=== PATIENT | male | born 1930 | race Caucasian/White ===

== ENCOUNTER → 2018-11-25 | Outpatient (CLI) | payer MEDICARE | END | disposition home or self-care (01) | LOC: PREOP 05:35 | PROVIDERS: ATTEND Orthopaedic Surgery | DX: Z01.818 Encounter for other preprocedural examination (principal) ==

== ENCOUNTER 2018-11-30 07:18 | Day surgery (SDC) | payer MEDICARE ==
--- NOTE | 2018-11-21 11:28 | HISTORY AND PHYSICAL ---
DATE OF SERVICE: 11/30/2018 DATE OF ADMISSION: 11/30/2018 Outpatient surgery on 11/30/2018 for right shoulder surgery. HISTORY OF PRESENT ILLNESS: The patient is an 88-year-old right hand dominant gentleman who has been treated for an acromioclavicular ganglion cyst on his right shoulder with aspirations with immediate recurrence. He reports pain in the area. Due to functional impairment, failure to improve with conservative measures, the patient elected to proceed with surgical intervention. REVIEW OF SYSTEMS: No chest pain or shortness of breath. No dysuria. PAST MEDICAL HISTORY: Hypertension and arthritis. PAST SURGICAL HISTORY: Left hip internal fixation. FAMILY HISTORY: Noncontributory. PRIMARY CARE PROVIDER: [facility]. MEDICATIONS: Lisinopril, tramadol, aspirin. ALLERGIES: SIMVASTATIN. SOCIAL HISTORY: The patient is a former smoker, drinks alcohol socially. PHYSICAL EXAMINATION: GENERAL: The patient is well developed, well-nourished, in no acute distress. HEENT: Normocephalic, atraumatic. Pupils are equal, round, reactive to light. Oropharynx is clear. NECK: Supple. No lymphadenopathy. LUNGS: Clear to auscultation bilaterally. HEART: Regular rate and rhythm. ABDOMEN: Soft, nontender, nondistended. EXTREMITIES: Right shoulder demonstrates a 3 x 3 cm cystic mass on the dorsal aspect of the acromioclavicular joint. This is tender to palpation. It is mobile and nonpulsatile. There is no erythema or warmth. He has no pain with full shoulder range of motion with the exception of pain with cross body adduction. IMPRESSION: Right acromioclavicular ganglion cyst. PLAN: Right shoulder open distal clavicle excision and cyst excision. The risks, benefits, options, ramifications and recovery were discussed at length with the patient. He understands and wished to proceed. Job ID: [id number] DocumentID: [id number] Dictated Date: 11/21/2018 09:38:36 Director Of Manufacturing Operations Date: 11/21/2018 11:27:56 Dictated By: CHELO CRUZ MD
[2018-11-30] VITALS (7 sets, daily range): BP systolic 161–192; BP diastolic 81–96
[~2018-11-30] VITALS: Ht 179.1 cm; Wt 67.4 kg
--- NOTE | 2018-11-30 07:33 | Progress Note-Pre Operative ---
Pre-Operative Progress Note H&P Reviewed The H&P was reviewed, patient examined and no changes noted. Date Seen by Provider: Nov 30, 2018 Time Seen by Provider: 07:33 Date H&P Reviewed: Nov 30, 2018 Time H&P Reviewed: 07:33 Pre-Operative Diagnosis: right acromio clavicular OA with cyst CHELO CRUZ MD Nov 30, 2018 07:33
--- NOTE | 2018-11-30 07:35 | Progress Note-Post Operative ---
Post-Operative Progess Note Surgeon (s)/Fundraising Specialist (s) Surgeon CHELO CRUZ MD Fundraising Specialist: Tyler Wiggins Pre-Operative Diagnosis right acromio clavicular OA with cyst Post-Operative Diagnosis right acromioclavicular primary osteoarthritis with cyst Procedure & Operative Findings Date of Procedure 11/30/18 Procedure Performed/Findings Right distal clavicle excision and cyst excision Anesthesia Type GETA Estimated Blood Loss Estimated blood loss (mL): 50 ml Specimens/Packing Specimens Removed ganglion cyst Packing: none CHELO CRUZ MD Nov 30, 2018 07:35
[2018-11-30] MEDS ORDERED: LACTATED RINGERS 1,000 ML IV PRN (08:01)
[2018-11-30] MEDS ORDERED: ceFAZolin INJECTION 1,000 MG in WATER (STERILE) FOR INJECTION 10 ML IV ONE (08:15)
[2018-11-30] MEDS ORDERED: WATER (STERILE) FOR INJECTION 10 ML ONE (08:16)
[2018-11-30] MEDS ORDERED: ceFAZolin INJECTION 1,000 MG ONE (08:16)
[2018-11-30] MEDS ORDERED: ATOR10TA66 PO (08:33)
[2018-11-30] MEDS ORDERED: CHOL20002 PO (08:33)
[2018-11-30] MEDS ORDERED: FINA5TAB6 PO (08:33)
[2018-11-30] MEDS ORDERED: ASPI-586 PO (08:33)
[2018-11-30] MEDS ORDERED: LISI40TA PO (08:33)
[2018-11-30] MEDS ORDERED: FAMO20TA5 PO (08:33)
[2018-11-30] MEDS ORDERED: TRAZ-190 PO (08:33)
[2018-11-30] MEDS ORDERED: LISI1TAB10 PO (08:33)
[2018-11-30] MEDS ORDERED: TRAM50TA2 PO (08:33)
[2018-11-30] MEDS ORDERED: TAMS0.4C98 PO (08:37)
[2018-11-30] MEDS ORDERED: SERT100T8 PO (08:37)
[2018-11-30] MEDS ORDERED: MIDAZOLAM 2 MG/2 ML (VERSED) VIAL ONE (09:18)
[2018-11-30] MEDS ORDERED: fentaNYL INJECTION 100 MCG/2 ML AMP ONE (09:18)
[2018-11-30] MEDS ORDERED: DEXAMETHASONE 10 MG/ML (DECADRON) 1 ML VIAL ONE (09:19)
[2018-11-30] MEDS ORDERED: ONDANSETRON 4 MG/2 ML (SDV) Z0FRAN ONE (09:19)
[2018-11-30] MEDS ORDERED: LIDOCAINE PF 2% 5 ML (XYLOCAINE) VIAL ONE (09:19)
[2018-11-30] MEDS ORDERED: SEVOFLURANE (ULTANE) 15 ML INHAL SOLN ONE ×5 (09:19→10:21)
[2018-11-30] MEDS ORDERED: ROCURONIUM 10 MG/ML 5 ML SYRINGE IV ONE (09:19)
[2018-11-30] MEDS ORDERED: proPOfol 200 MG/20 ML (DIPRIVAN) VIAL IV ONE (09:19)
[2018-11-30] MEDS ORDERED: BUPIVACAINE 0.5% 30 ML (SENSORCAINE) VIAL ONE (09:27)
[2018-11-30] MEDS ORDERED: NEOSTIGMINE 1 MG/ML 5 ML SYRINGE ONE (09:44)
[2018-11-30] MEDS ORDERED: GLYCOPYRROLATE 0.2 MG/ML (ROBINUL) 2 ML VIAL ONE (09:44)
[2018-11-30] MEDS ORDERED: morphine INJ 10 MG/ML 1ML (SYR OR VIAL) IVP ONE (10:45)
[2018-11-30] MEDS: oxyCODONE/APAP 5/325MG (PERCOCET 5) TABLET PO PRN ×2 (11:42→13:00)
--- NOTE | 2018-11-30 11:45 | NUR ---
DR. CRUZ ON FLOOR CHECKING ON PATIENT. THIS RN ASKED IF PATIENT NEEDS PHYSICAL THERAPY. DR. CRUZ STATED PATIENT DOESN'T NEED PT AND MAY HAVE SLING OFF WHEN USING WALKER.
[2018-11-30] MEDS ORDERED: OXYC-471 PO (11:59)
--- NOTE | 2018-11-30 12:22 | NUR ---
THIS RN PHONED DR. CRUZ TO REPORT THAT PATIENT HAD RECEIVED PERCOCET AT 1142 AND WAS 8/10 THEN 5/10 AND NOW STATES HE IS TEARING AND ON THE VERGE OF SCREAMING DUE TO PAIN. GAVE TELEPHONE ORDER FOR 3MG MORPHINE ONCE.
[2018-11-30] MEDS ORDERED: morphine INJ 4 MG/ML 1 ML (VIAL/SYRINGE) IVP PRN ×2 (12:30→13:00)
--- NOTE | 2018-11-30 12:52 | NUR ---
THIS RN PHONED KENNETH HORTA APRN AND INFORMED OF FIRST DOSE OF PERCOCET AND MORPHINE ORDER FROM DR. CRUZ AND INFORMED PATIENT IN STILL IN PAIN, TEARING UP AND INFORMS IS ABOUT TO START SCREAMING. KENNETH HORTA APRN GAVE TELEPHONE ORDER FOR 3MG MORPHINE AND TO GIVE ANOTHER 5/325 PERCOCET AT THIS TIME.
[2018-11-30] MEDS ORDERED: morphine INJ 10 MG/ML 1ML (SYR OR VIAL) ONE (12:56)
--- NOTE | 2018-11-30 13:17 | Anesthesia-General Post-Op ---
General Patient Condition Mental Status/LOC: Same as Preop Cardiovascular: Satisfactory Nausea/Vomiting: Absent Respiratory: Satisfactory Pain: Controlled Complications: Absent Post Op Complications Complications None Follow Up Care/Instructions Patient Instructions None needed. Anesthesia/Patient Condition Patient Condition Patient is doing well, no complaints, stable vital signs, no apparent adverse anesthesia problems. No complications reported per nursing. KENNETH ELDER CRNA Nov 30, 2018 13:17
--- NOTE | 2018-11-30 14:52 | OPERATIVE REPORT ---
DATE OF SERVICE: 11/30/2018 PREOPERATIVE DIAGNOSES: 1. Right acromioclavicular primary osteoarthritis. 2. Right acromioclavicular ganglion cyst. POSTOPERATIVE DIAGNOSES: 1. Right acromioclavicular primary osteoarthritis. 2. Right acromioclavicular ganglion cyst. PROCEDURES: 1. Right open distal clavicle excision. 2. Right acromioclavicular ganglion cyst excision. SURGEON: Hermann Cruz MD. PARQUETRY FLOOR LAYER: PATIENCE Campbell, who assisted throughout the procedure and closed the incision. ANESTHESIA: General endotracheal by Sandra Reyes CRNA. ESTIMATED BLOOD LOSS: 50 mL. DRAINS: None. COMPLICATIONS: None. SPECIMENT: The ganglion cyst was sent for pathologic examination. The patient transferred to recovery room awake and stable condition. POSTOPERATIVE PLAN: Protected weightbearing for 4 weeks on the right upper extremity. STATEMENT OF MEDICAL NECESSITY: The patient is an 88-year-old right hand dominant gentleman with complaints of a mass, which was fluid filled at his acromioclavicular joint. This has undergone two aspirations in the past, but had recurrence. The patient was counseled regarding treatment options and elected to proceed with excision with distal clavicle excision, understanding that there could be recurrence. DESCRIPTION OF PROCEDURE: After risks and benefits of procedure were discussed and questions were answered and informed consent was signed and placed on chart, the operative site was confirmed in the preoperative holding area initialed by the surgeon. The patient was then transferred to the operating room after adequate levels of general endotracheal anesthetic were obtained, a timeout was called confirming the operative site. The right upper extremity was prepped and draped in the usual sterile fashion. An incision was made on the medial aspect of the cyst. The underlying soft tissues were carefully dissected. The cyst was exposed in its entirety and excised. This originated from the acromioclavicular joint. The deltotrapezial fascia was incised longitudinally, exposing the distal centimeter of the distal clavicle, which was then excised without difficulty. The edges of this were then rasped. The fascia was then closed over the defect with 0 Vicryl in bytogh-ve-[id number] interrupted fashion with a good closure obtained. The wound was copiously irrigated. A 2-0 Vicryl was used to reapproximate subcutaneous tissue and skin was closed with 4-0 nylon in vertical mattress interrupted fashion. Incision was infiltrated with plain Marcaine. A soft dressing and sling were applied and the patient was transferred to the recovery room awake and stable condition. Job ID: [id number] DocumentID: [id number] Dictated Date: 11/30/2018 10:25:12 Apparel Patternmaker Date: 11/30/2018 14:52:05 Dictated By: HERMANN CRUZ MD
== END 2018-11-30 14:35 | disposition home or self-care (01) ==
LOC: SDC 07:18
PROVIDERS: ATTEND Orthopaedic Surgery
DX: M19.011 Primary osteoarthritis, right shoulder (principal); M67.411 Ganglion, right shoulder; Z11.2 Encounter for screening for other bacterial diseases; I10 Essential (primary) hypertension; E78.5 Hyperlipidemia, unspecified; Z79.899 Other long term (current) drug therapy; Z87.891 Personal history of nicotine dependence
CPT/HCPCS: 87081

== ENCOUNTER 2019-02-03 09:12 | Inpatient (IN) | payer MEDICARE ==
[~2019-02-03] VITALS: Ht 177.8 cm; Wt 65.0 kg
[~2019-02-03 09:12] MED LIST: ASPI-586 PO; ATOR10TA66 PO; CHOL20002 PO; FAMO20TA5 PO; FINA5TAB6 PO; LISI1TAB10 PO; LISI40TA PO; OXYC-471 PO; SERT100T8 PO; TAMS0.4C98 PO; TRAM50TA2 PO; TRAZ-190 PO
[2019-02-03 09:34] LABS: HEMATOCRIT 40 % (40-54); HEMOGLOBIN 13.8 G/DL (13.3-17.7); MEAN CORPUSCULAR HEMOGLOBIN 30 PG (25-34); MEAN CORPUSCULAR HGB CONC 34 G/DL (32-36); MEAN CORPUSCULAR VOLUME 88 FL (80-99); PLATELET COUNT 208 10^3/uL (130-400); RED CELL DISTRIBUTION WIDTH 13.8 % (10.0-14.5); WHITE BLOOD COUNT 6.8 10^3/uL (4.3-11.0)
[2019-02-03 09:35] LABS: BASOPHILS % (AUTO) 0 % (0-10); EOSINOPHILS % (AUTO) 0 % (0-10); LYMPHOCYTES # (AUTO) 1.1 X 10^3 (1.0-4.0); LYMPHOCYTES % (AUTO) 16 % (12-44); MEAN PLATELET VOLUME 9.7 FL (7.4-10.4); MONOCYTES # (AUTO) 0.6 X 10^3 (0.0-1.0); MONOCYTES % (AUTO) 9 % (0-12); NEUTROPHILS # (AUTO) 5.1 X 10^3 (1.8-7.8); NEUTROPHILS % (AUTO) 75 % (42-75)
--- NOTE | 2019-02-03 09:51 | Diagnostic Imaging Report ---
Indication: Irregular heartbeat. Time of exam 9:28 AM No prior studies are available for comparison. The heart size is normal. There is elevation right hemidiaphragm. There is subsegmental atelectasis in the right base. Otherwise the lungs are clear. No effusion or pneumothorax is seen. Impression: Right basilar subsegmental atelectasis. Dictated by: Dictated on workstation # [id number]
[2019-02-03 09:59] LABS: BUN/CREATININE RATIO 15; CALCIUM 9.5 MG/DL (8.5-10.1); CARBON DIOXIDE 29 MMOL/L (21-32); CHLORIDE 84 MMOL/L (98-107); GFR ESTIMATED > 60; GLUCOSE 137 MG/DL (70-105); POTASSIUM 3.5 MMOL/L (3.6-5.0); SODIUM 128 MMOL/L (135-145)
--- NOTE | 2019-02-03 10:55 | ED Chest Pain ---
General Stated Complaint: IRREGULAR HR Source: patient Exam Limitations: no limitations History of Present Illness Date Seen by Provider: February 03, 2019 Time Seen by Provider: 10:45 Initial Comments Patient is an 88[facility]-old [facility] who presents with shortness of breath, palpitations which be intermittent for the past 3 days. Dyspnea with rest and with exertion. He is not hypoxic or tachycardic. Initial EKG shows A. fib rate controlled without acute ST-T wave changes. Patient denies chest pain or history of coronary disease. Denies history of heart failure, valvular heart disease or arrhythmia. No fevers chills, nausea vomiting sweats. Patient reports some urinary frequency and dysuria. Allergies and Home Medications Allergies Coded Allergies: simvastatin (Verified Allergy, Unknown, 11/25/18) Home Medications Aspirin 81 Mg Tablet.dr, 81 MG PO DAILY, (Reported) Atorvastatin Calcium 10 Mg Tablet, 5 MG PO HS, (Reported) Cholecalciferol (Vitamin D3) 2,000 Unit Capsule, 3,000 UNIT PO DAILY, (Reported) Famotidine 20 Mg Tablet, 20 MG PO DAILY, (Reported) Finasteride 5 Mg Tablet, 5 MG PO DAILY, (Reported) Lisinopril 40 Mg Tablet, 40 MG PO DAILY, (Reported) Oxycodone HCl/Acetaminophen 1 Each Tablet, 1 EACH PO Q4H PRN for PAIN-MODERATE Prescribed by: WILDER MARKS on 11/30/18 1159 Sertraline HCl 100 Mg Tablet, 50 MG PO DAILY, (Reported) Tamsulosin HCl 0.4 Mg Cap, 0.4 MG PO DAILY, (Reported) Tramadol HCl 50 Mg Tablet, 50 MG PO Q6H, (Reported) Trazodone HCl 100 Mg Tablet, 100 MG PO HS, (Reported) Past Ghbling-Snvvhl-Tqruro Hx Patient Social History Type Used: Cigarettes Former Smoker, Quit: Nov 30, 1977 Recent Hopitalizations: No Immunizations Up To Date Date of Influenza Vaccine: Aug 02, 2018 Seasonal Allergies Seasonal Allergies: No Past Medical History Surgeries: Yes (LEFT HIP) Respiratory: No High Cholesterol, Hypertension Neurological: No Gastrointestinal: No Endocrine: No Hearing Impairment: Hard of Hearing, Bilateral Hearing Aide Cancer: No Psychosocial: No Integumentary: No Physical Exam Vital Signs Capillary Refill : Height, Weight, BMI Height: 5'10.50" Weight: 148lbs. 8.0oz. [id number]; 21.0 BMI Method: Progress/Results/Core Measures Results/Orders Lab Results Laboratory Tests Test 02/03/19 09:28 02/03/19 10:45 Range/Units White Blood Count 6.8 4.3-11.0 10^3/uL Red Blood Count 4.55 4.35-5.85 10^6/uL Hemoglobin 13.8 13.3-17.7 G/DL Hematocrit 40 40-54 % Mean Corpuscular Volume 88 80-99 FL Mean Corpuscular Hemoglobin 30 25-34 PG Mean Corpuscular Hemoglobin Concent 34 32-36 G/DL Red Cell Distribution Width 13.8 10.0-14.5 % Platelet Count 208 130-400 10^3/uL Mean Platelet Volume 9.7 7.4-10.4 FL Neutrophils (%) (Auto) 75 42-75 % Lymphocytes (%) (Auto) 16 12-44 % Monocytes (%) (Auto) 9 0-12 % Eosinophils (%) (Auto) 0 0-10 % Basophils (%) (Auto) 0 0-10 % Neutrophils # (Auto) 5.1 1.8-7.8 X 10^3 Lymphocytes # (Auto) 1.1 1.0-4.0 X 10^3 Monocytes # (Auto) 0.6 0.0-1.0 X 10^3 Eosinophils # (Auto) 0.0 0.0-0.3 10^3/uL Basophils # (Auto) 0.0 0.0-0.1 10^3/uL Sodium Level 128 L 135-145 MMOL/L Potassium Level 3.5 L 3.6-5.0 MMOL/L Chloride Level 84 L 98-107 MMOL/L Carbon Dioxide Level 29 21-32 MMOL/L Anion Gap 15 H 5-14 MMOL/L Blood Urea Nitrogen 16 7-18 MG/DL Creatinine 1.10 0.60-1.30 MG/DL Estimat Glomerular Filtration Rate > 60 BUN/Creatinine Ratio 15 Glucose Level 137 H 70-105 MG/DL Calcium Level 9.5 8.5-10.1 MG/DL Troponin T 39 H <=15 NG/L Pro-B-Type Natriuretic Peptide 1251.0 H <75.0 PG/ML My Orders Orders - VIMAL KULKARNI DO Cbc With Automated Diff (02/03/19 09:23) Ekg Tracing (02/03/19 09:23) Troponin T (02/03/19 09:23) Basic Metabolic Panel (02/03/19 09:23) Thyroid Stimulating Hormone (02/03/19 09:23) Chest 1 View Ap/Pa Only (02/03/19 09:23) Probnp Fs (02/03/19 09:23) Furosemide Injection (Lasix Injection) (02/03/19 11:00) Ua Culture If Indicated (02/03/19 10:49) Departure Departure-Patient Inst. Referrals: NO,LOCAL PHYSICIAN (PCP/Family) Primary Care Physician VIMAL KULKARNI DO February 03, 2019 10:55
[2019-02-03 10:58] LABS: CLARITY,URINE CLEAR; COLOR,URINE YELLOW; GLUCOSE, URINE (UA) NEGATIVE (NEGATIVE); KETONES,URINE NEGATIVE (NEGATIVE); PH,URINE 7.5 (5-9); PROTEIN,URINE 1+ (NEGATIVE)
[2019-02-03 10:59] LABS: BILIRUBIN,URINE NEGATIVE (NEGATIVE); LEUKOCYTE ESTERASE ,URINE NEGATIVE (NEGATIVE); NITRITE,URINE NEGATIVE (NEGATIVE); SQUAMOUS EPITHELIAL CELL,UR 0-2 /HPF; UROBILINOGEN,URINE 0.2 MG/DL (NORMAL)
[2019-02-03] MEDS ORDERED: FUROSEMIDE 40 MG/4 ML INJ (LASIX) IVP ONE (11:00)
[2019-02-03] MEDS ORDERED: fentaNYL INJECTION 100 MCG/2 ML AMP IVP ONE (11:30)
[2019-02-03] MEDS ORDERED: ONDANSETRON 4 MG/2 ML (SDV) Z0FRAN IVP ONE (11:30)
--- NOTE | 2019-02-03 14:25 | NUR ---
ROSE AUSTIN admitted to room 403-1, with an admitting diagnosis of [place] A-FIB, on 02/03/19 from [facility] via [facility], accompanied by EMS.ROSE AUSTIN introduced to surroundings, call light, bed controls, phone, TV, temperature control, lights, meal times, smoking policy, visitor policy, side rail policy, bathrooms and showers. Patient Rights given to patient in the handbook. ROSE AUSTIN verbalizes understanding that [facility] is not responsible for the loss or damage to any personal effects or valuables that are kept in the patients posession during their hospitalization. ROSE AUSTIN verbalizes understanding of Interdisciplinary Patient Education. Patient and/or family were informed about the Rapid Response Team and its purpose.
[2019-02-03 14:32] VITALS: BP 180/84
[2019-02-03 14:50] VITALS: BP 178/80
[2019-02-03] MEDS ORDERED: METH5TAB5 PO (14:51)
[2019-02-03] MEDS ORDERED: UBID1CAP53 PO (14:51)
[2019-02-03] MEDS ORDERED: OXYC-471 PO (14:51)
--- NOTE | 2019-02-03 14:52 | NUR ---
PATIENT BROUGHT IN A BAG OF MEDICATION BOTTLES. [facility] 01-16-19 METHIMAZOLE 5MG 1/2 DAILY #45 01-13-19 TRAMADOL 50MG QID PRN PAIN #120 12-26-18 FAMOTIDINE 20MG DAILY #90 11-25-18 TAMSULOSIN 0.4MG DAILY #90 11-25-18 ATORVASTATIN 10MG 1/2 HS #45 11-25-18 FINASTERIDE 5MG DAILY #90 11-25-18 SERTRALINE 100MG 1/2 DAILY #45 11-24-18 LISINOPRIL 40MG DAILY #90 11-24-18 ASPIRIN 81MG DAILY #120 10-12-18 TRAZODONE 100MG HS #90 09-24-18 LISINOPRIL HCTZ 20-25MG 1 & 1/2 TAB DAILY #135 (NOT CURRENTLY TAKING) BOTTLE FROM JON GONZALEZ: 11-30-18 OXYCODONE 5-325MG 1 Q4H PRN #30 OTC MEDS: CO Q 10 100MG VITAMIN D3 2,000 UNITS ALSO HAS GLYCERIN SUPPOSITORIES NEEDED
[2019-02-03] MEDS ORDERED: GLYC-12 RC (15:07)
[2019-02-03 15:15] VITALS: BP 158/72
[2019-02-03] MEDS ORDERED: CATHETER FLUSH 10 ML SYR IV PRN (15:15)
[2019-02-03] MEDS: oxyCODONE/APAP 5/325MG (PERCOCET 5) TABLET PO PRN ×2 (16:48→23:22)
[2019-02-03] MEDS: FUROSEMIDE 40 MG/4 ML INJ (LASIX) IV SCH (16:49)
--- NOTE | 2019-02-03 17:52 | History & Physical-Hospitalist ---
History of Present Illness HPI/Chief Complaint The patient's a pleasant 88-year-old white male who noted for about the past week he was having increased shortness of breath initially just with exertion. The past several days he's noticed some intermittent palpitations without lightheadedness or chest discomfort. He's had some orthopnea without PND. He went out to breakfast this morning and just the effort of walking back into the house from his car caused significant shortness of breath and fatigue. Because of the shortness of breath he alerted EMS services and was brought to the [place] emergency room. There he was noted to be in atrial fibrillation with no reported past history of atrial fibrillation. His rate was reportedly control I suspect that he was hypertensive as he has been hypertensive upon arrival here but did not see blood pressure from the emergency room sheet. [facility] and reports long-standing hypertension with no history of known coronary disease. He reports that he had been on lisinopril HCT but will switch to plain lisinopril. He is not sure why but he was noted to be hyponatremic with sodium level of 128 today which may be the reason. He doesn't recall being hyponatremic in the past that he has known of he was feeling a little bit confused with the shortness of breath but had not had any previous reported confusion. Date Seen 02/03/19 Time Seen by a Provider: 04:[address] MD PCP No,Local Physician Referring Physician Date of Admission February 03, 2019 at 12:23 Home Medications & Allergies Home Medications Reviewed patient Home Medication Reconciliation performed by pharmacy medication reconciliations rfid technician and/or nursing. Patients Allergies have been reviewed. Allergies Allergies Coded Allergies simvastatin (Verified Allergy, Unknown, Takes Atorvastatin at home, 02/03/19) Past Lshjgsq-Pqnkhc-Bgdwmh Hx Past Med/Social Hx: Reviewed and Corrections made Patient Social History Alcohol Use: Occasionally Uses Recreational Drug Use: No Smoking Status: Never a Smoker Former Smoker, Quit: Nov 30, 1977 2nd Hand Smoke Exposure: No Recent Foreign Travel: No Contact w/other who traveled: No Recent Hopitalizations: No Recent Infectious Disease Expo: No Immunizations Up To Date Date of Influenza Vaccine: Aug 02, 2018 Seasonal Allergies Seasonal Allergies: No Past Medical History Cardiac: High Cholesterol, Hypertension Hearing Impairment: Hard of Hearing, Bilateral Hearing Aide Review of Systems Constitutional: No chills, No diaphoresis, No dizziness, No fever, No malaise; weakness; No weight gain, No weight loss, No other Respiratory: see HPI; No cough; dyspnea on exertion; No hemoptysis; orthopnea; No phlegm; short of breath; No stridor, No wheezing, No other Cardiovascular: No chest pain, No edema, No Hx of Intervention; palpitations; No syncope, No vascular heart diseas, No other Physical Exam Physical Exam Vital Signs Vital Signs - First Documented 02/03/19 02/03/19 09:15 13:35 Temp 98.1 Pulse 69 Resp 24 B/P (MAP) 159/81 (107) Pulse Ox 94 O2 Delivery Room Air O2 Flow Rate 2.00 Capillary Refill : Less Than 3 Seconds Height, Weight, BMI Height: 5'10.00" Weight: 143lbs. 6.0oz. 65.805885xm; 21.0 BMI Method:Stated General Appearance: No Apparent Distress, Thin HEENT: PERRL/EOMI, Normal ENT Inspection, Pharynx Normal, Moist Mucous Membranes Neck: Full Range of Motion, Normal Inspection, Non Tender Respiratory: Chest Non Tender, No Accessory Muscle Use, No Respiratory Distress, Other (By basilar rales noted some mild expiratory wheezing) Cardiovascular: No Edema, No Gallop, No JVD, No Murmur, Irregularly Irregular Gastrointestinal: Normal Bowel Sounds, No Organomegaly, No Pulsatile Mass, Non Tender, Soft Extremity: Normal Capillary Refill, Normal Inspection, Normal Range of Motion, Non Tender, No Calf Tenderness, No Pedal Edema Neurologic/Psychiatric: Alert, Oriented x3, No Motor/Sensory Deficits, Normal Mood/Affect Results Results/Procedures Labs Laboratory Tests 02/03/19 09:28 Patient resulted labs reviewed. Assessment/Plan Admission Diagnosis A/P 1. Acute diastolic heart failure likely due to underlying hypertensive heart disease and acute or recent atrial fibrillation. Echocardiogram revealed an ejection fraction of 55-60 percent with visual findings suggesting significant diastolic dysfunction with mild left atrial chamber dilatation and mild concentric left ventricle hypertrophy. PA pressure was mildly elevated estimated at 35 mmHg. We'll continue furosemide and repeat basic metabolic panel in the morning. 2. Hyponatremia unclear etiology there is no evidence to suggest significant volume overload we will repeat basic metabolic panel in the morning. 3. History of hyperthyroidism on low-dose methimazole TSH was normal. The medications not available here mellitus have the patient resume on discharge. 4. Hypertension exacerbated by heart failure continue IV diuretics and have added carvedilol 6.25 mg twice a day. 5. Recent onset atrial fibrillation we will discuss anticoagulant therapy with the patient in more detail in the morning. Admission Status: Inpatient Order (span 2 midnights) Reason for Inpatient Admission: See admission diagnosis Clinical Quality Measures DVT/VTE Risk/Contraindication: Risk Factor Score Per Nursin RFS Level Per Nursing on Admit: 4+=Very High NATALIE LANE MD February 03, 2019 17:52
[2019-02-03 20:00] VITALS: BP 127/72
[2019-02-03] MEDS: TAMSULOSIN 0.4 MG (FLOMAX) CAP PO SCH (21:16)
[2019-02-03] MEDS: CARVEDILOL 6.25 MG (COREG) TAB PO SCH (21:16)
[2019-02-03] MEDS: ATORVASTATIN 10 MG (LIPITOR) TABLET PO SCH (21:17)
[2019-02-03] MEDS: traZODone 100 MG (DESYREL) TAB PO SCH (21:17)
[2019-02-04] VITALS (7 sets, daily range): BP systolic 92–128; BP diastolic 52–76
[2019-02-04 05:34] LABS: CALCIUM 10.1 MG/DL (8.5-10.1); CREATININE SERUM 1.82 MG/DL (0.60-1.30); POTASSIUM 3.4 MMOL/L (3.6-5.0)
[2019-02-04] MEDS: FUROSEMIDE 40 MG/4 ML INJ (LASIX) IV SCH (06:19)
[2019-02-04] MEDS: FAMOTIDINE 20 MG (PEPCID) TABLET PO SCH (08:26)
[2019-02-04] MEDS: ASPIRIN 81 MG CHEW (CHILDREN'S ASA) PO SCH (08:26)
[2019-02-04] MEDS: SERTRALINE 50 MG (ZOLOFT) TABLET PO SCH (08:26)
[2019-02-04] MEDS: CARVEDILOL 6.25 MG (COREG) TAB PO SCH (08:26)
[2019-02-04] MEDS ORDERED: lisINopril 40 MG (PRINIVIL) TABLET PO SCH (09:00)
--- NOTE | 2019-02-04 10:20 | NUR ---
Pt BP 100/[address] Bills notified. No new orders at this time.
--- NOTE | 2019-02-04 10:27 | Progress Note-Hospitalist ---
Subjective HPI/CC On Admission Date Seen by Provider: February 04, 2019 Time Seen by Provider: 09:30 The patient's a pleasant 88-year-old white male who noted for about the past week he was having increased shortness of breath initially just with exertion. The past several days he's noticed some intermittent palpitations without lighth eadedness or chest discomfort. He's had some orthopnea without PND. He went out to breakfast this morning and just the effort of walking back into the house from his car caused significant shortness of breath and fatigue. Because of the shortness of breath he alerted EMS services and was brought to the [place] emergency room. There he was noted to be in atrial fibrillation with no reported past history of atrial fibrillation. His rate was reportedly control I suspect that he was hypertensive as he has been hypertensive upon arrival here but did not see blood pressure from the emergency room sheet. [facility] and reports long-standing hypertension with no history of known coronary disease. He reports that he had been on lisinopril HCT but will switch to plain lisinopril. He is not sure why but he was noted to be hyponatremic with sodium level of 128 today which may be the reason. He doesn't recall being hyponatremic in the past that he has known of he was feeling a little bit confused with the shortness of breath but had not had any previous reported confusion. Subjective/Events-last exam Patient voices no complaints denies lightheadedness nausea and chest discomfort or shortness of breath. He's been to the bathroom and back and has had 2 cups of coffee. His blood pressure however is gone down significantly record at 90/60 this morning unfortunately he did receive all of his blood pressure medications including furosemide IV. We have put a hold on antihypertensive medication. Objective Exam Vital Signs Vital Signs Date Time Temp Pulse Resp B/P (MAP) Pulse Ox O2 Delivery O2 Flow Rate FiO2 02/04/19 08:20 98.0 59 12 92/52 (65) 95 Room Air 02/04/19 00:40 93.00 Capillary Refill : Less Than 3 Seconds General Appearance: No Apparent Distress, Thin HEENT: PERRL/EOMI, Normal ENT Inspection, Pharynx Normal, Moist Mucous Membranes Neck: Full Range of Motion, Normal Inspection, Non Tender Respiratory: Chest Non Tender, No Accessory Muscle Use, No Respiratory Distress, Other (Wheezing resolved few basilar rales noted no vesicular breath sounds noted.) Cardiovascular: No Edema, No Gallop, No JVD, No Murmur, Irregularly Irregular Gastrointestinal: Normal Bowel Sounds, No Organomegaly, No Pulsatile Mass, Non Tender, Soft Extremity: Normal Capillary Refill, Normal Inspection, Normal Range of Motion, Non Tender, No Calf Tenderness, No Pedal Edema Neurologic/Psychiatric: Alert, Oriented x3, No Motor/Sensory Deficits, Normal Mood/Affect Results/Procedures Lab Laboratory Tests 02/04/19 04:45 Patient resulted labs reviewed. Assessment/Plan Assessment and Plan Assess & Plan/Chief Complaint A/P 1. Acute diastolic heart failure likely due to underlying hypertensive heart disease and acute or recent atrial fibrillation. Echocardiogram revealed an ejection fraction of 55-60 percent with visual findings suggesting significant diastolic dysfunction with mild left atrial chamber dilatation and mild concentric left ventricle hypertrophy. PA pressure was mildly elevated est imated at 35 mmHg. to hypotension and increasing BUN/creatinine significantly to 1.6 will be holding lisinopril carvedilol and furosemide. Patient was warned about orthostatic hypotension nursing staff was warned he will be getting up with assistance only today and was encouraged to increase fluid intake by several glasses of water more than his norm. 2. Hyponatremia unclear etiology improved sodium level up to 131 at the expense of some dehydration. 3. History of hyperthyroidism on low-dose methimazole TSH was normal. The medications not available here mellitus have the patient resume on discharge. 4. Hypertension history currently hypotensive see above. 5. Recent onset atrial fibrillation we will discuss anticoagulant therapy with the patient in more detail in the morning continue to hold today as the patient is a fall risk due to hypotension. Repeat BMP in the morning. Admission Status: Inpatient Order (span 2 midnights) Clinical Quality Measures DVT/VTE Risk/Contraindication: Risk Factor Score Per Nursin RFS Level Per Nursing on Admit: 4+=Very High NATALIE LANE MD February 04, 2019 10:27
[2019-02-04] MEDS: traZODone 100 MG (DESYREL) TAB PO SCH (20:17)
[2019-02-04] MEDS: ATORVASTATIN 10 MG (LIPITOR) TABLET PO SCH (20:17)
[2019-02-04] MEDS: TAMSULOSIN 0.4 MG (FLOMAX) CAP PO SCH (20:17)
[2019-02-04] MEDS: oxyCODONE/APAP 5/325MG (PERCOCET 5) TABLET PO PRN (21:29)
[2019-02-05 03:50] VITALS: BP 91/60
[2019-02-05 08:00] VITALS: BP 92/50
[2019-02-05] MEDS: SERTRALINE 50 MG (ZOLOFT) TABLET PO SCH (08:13)
[2019-02-05] MEDS: FAMOTIDINE 20 MG (PEPCID) TABLET PO SCH (08:13)
[2019-02-05] MEDS: ASPIRIN 81 MG CHEW (CHILDREN'S ASA) PO SCH (08:13)
[2019-02-05 12:00] VITALS: BP 142/73
--- NOTE | 2019-02-05 13:45 | Discharge Summary-Hospitalist ---
Diagnosis/Chief Complaint Date of Admission February 03, 2019 at 12:23 Date of Discharge Admission Diagnosis A/P 1. Acute diastolic heart failure likely due to underlying hypertensive heart disease and acute or recent atrial fibrillation. Echocardiogram revealed an ejection fraction of 55-60 percent with visual findings suggesting significant diastolic dysfunction with mild left atrial chamber dilatation and mild concentric left ventricle hypertrophy. PA pressure was mildly elevated estimated at 35 mmHg. We'll continue furosemide and repeat basic metabolic pa joseph in the morning. 2. Hyponatremia unclear etiology there is no evidence to suggest significant volume overload we will repeat basic metabolic panel in the morning. 3. History of hyperthyroidism on low-dose methimazole TSH was normal. The medications not available here mellitus have the patient resume on discharge. 4. Hypertension exacerbated by heart failure continue IV diuretics and have added carvedilol 6.25 mg twice a day. 5. Recent onset atrial fibrillation we will discuss anticoagulant therapy with the patient in more detail in the morning. Discharge Summary Discharge Physical Exam Allergies: Coded Allergies: simvastatin (Verified Allergy, Unknown, Takes Atorvastatin at home, 02/03/19) Vitals & I&Os Vital Signs Date Time Temp Pulse Resp B/P (MAP) Pulse Ox O2 Delivery O2 Flow Rate FiO2 02/05/19 13:00 78 02/05/19 12:00 98.1 20 142/73 (96) 95 Room Air 02/04/19 20:00 93.00 General Appearance: No Apparent Distress, WD/WN Respiratory: Chest Non Tender, Lungs Clear, Normal Breath Sounds, No Accessory Muscle Use, No Respiratory Distress Cardiovascular: No Edema, No Gallop, No JVD, No Murmur, Normal Peripheral Pulses, Irregularly Irregular Gastrointestinal: Normal Bowel Sounds, No Organomegaly, No Pulsatile Mass, Non Tender, Soft Skin: Normal Color, Warm/Dry Neurologic/Psychiatric: Alert, Oriented x3, Normal Mood/Affect Hospital Course Was the Problem List Reviewed?: Yes The patient's a pleasant 88-year-old white male who noted for about the past week he was having increased shortness of breath initially just with exertion. The past several days he's noticed some intermittent palpitations without lightheadedness or chest discomfort. He's had some orthopnea without PND. He went out to breakfast this morning and just the effort of walking back into the house from his car caused significant shortness of breath and fatigue. Because of the shortness of breath he alerted EMS services and was brought to the [place] emergency room. There he was noted to be in atrial fibrillation with no reported past history of atrial fibrillation. His rate was reportedly control I suspect that he was hypertensive as he has been hypertensive upon arrival here but did not see blood pressure from the emergency room sheet. He has received all of his care from the [place] and reports long-standing hypertension with no history of known coronary disease. He reports that he had been on lisinopril HC T but will switch to plain lisinopril. He is not sure why but he was noted to be hyponatremic with sodium level of 128 today which may be the reason. He doesn't recall being hyponatremic in the past that he has known of he was feeling a little bit confused with the shortness of breath but had not had any previous reported confusion. Hospital course: The patient was admitted for treatment of atrial fibrillation likely new or recent onset and the concern for secondary congestive heart failure and considering borderline troponin elevation consideration for acute coronary syndrome. He had no chest discomfort and no ischemic EKG changes favoring a type II infarct from hypertension and atrial fibrillation. Echocardiography revealed preserved systolic function and evidence for underlying diastolic dysfunction mild LVH and mild left atrial chamber dilatation. PA pressure was only minimally elevated at 35 mmHg. The inferior vena cava was actually small collapsing completely on inspiration indicative of low right atrial pressure. He was given carvedilol and lisinopril was continued with 1 or 2 doses of IV Lasix. This dropped his systolic pressure in the 90s but he denied any problems lightheadedness ambulating without difficulty. On the day of this discharge while he was resting he had a supine pressure of 95/65 but when standing blood pressure was in the 140/70 range with a heart rate of 72 and irregularly irregular. His rate remained under control off of beta vadim therapy. He is advised to monitor home blood pressures and take Lasix only as needed for shortness of breath with follow-up with the [place] where he gets his healthcare in 1-2 weeks. Labs (last 24 hrs) Patient resulted labs reviewed. Discussion & Recommendations Discharge Planning: >30 minutes discharge planning Discharge Home Medications: Active Scripts Active Reported Glycerin 1 Each Supp.rect 1 Supp.rect RC DAILY PRN Methimazole 5 Mg Tablet 2.5 Mg PO HS TAKES 1/2 (5MG) TABLET Oxycodone-Acetaminophen 5-325 (Oxycodone HCl/Acetaminophen) 1 Each Tablet 1 Tab PO Q4H PRN Co Q-10 100 mg Softgel (Ubidecarenone/Vit E Acetate) 1 Each Capsule 100 Mg PO DAILY Sertraline HCl 100 Mg Tablet 50 Mg PO DAILY TAKES 1/2 (100MG) TABLET Flomax (Tamsulosin HCl) 0.4 Mg Cap 0.4 Mg PO HS Trazodone HCl 100 Mg Tablet 100 Mg PO HS Tramadol HCl 50 Mg Tablet 50 Mg PO QID PRN Lisinopril 40 Mg Tablet 40 Mg PO DAILY Finasteride 5 Mg Tablet 5 Mg PO HS Famotidine 20 Mg Tablet 20 Mg PO DAILY Vitamin D-3 (Cholecalciferol (Vitamin D3)) 2,000 Unit Capsule 2,000 Unit PO DAILY Atorvastatin Calcium 10 Mg Tablet 5 Mg PO HS TAKES 1/2 (10MG) TABLET Aspir 81 (Aspirin) 81 Mg Tablet.dr 81 Mg PO DAILY Instructions to patient/family Please see electronic discharge instructions given to patient. Clinical Quality Measures DVT/VTE Risk/Contraindication: Risk Factor Score Per Nursin RFS Level Per Nursing on Admit: 4+=Very High NATALIE LANE MD February 05, 2019 13:45
[2019-02-05 14:15] LABS: POTASSIUM 2.8 MMOL/L (3.6-5.0)
[2019-02-05 14:16] LABS: CALCIUM 9.9 MG/DL (8.5-10.1); CREATININE SERUM 1.6 MG/DL (0.60-1.30)
[2019-02-05 15:37] VITALS: BP 139/79
[2019-02-05 19:04] VITALS: BP 96/56
[2019-02-05] MEDS: traZODone 100 MG (DESYREL) TAB PO SCH (21:06)
[2019-02-05] MEDS: TAMSULOSIN 0.4 MG (FLOMAX) CAP PO SCH (21:06)
[2019-02-05] MEDS: ATORVASTATIN 10 MG (LIPITOR) TABLET PO SCH (21:06)
[2019-02-05] MEDS: oxyCODONE/APAP 5/325MG (PERCOCET 5) TABLET PO PRN (21:07)
[2019-02-06] VITALS (7 sets, daily range): BP systolic 87–150; BP diastolic 51–75
[2019-02-06 05:22] LABS: CALCIUM 9.3 MG/DL (8.5-10.1); CREATININE SERUM 1.32 MG/DL (0.60-1.30); POTASSIUM 2.8 MMOL/L (3.6-5.0)
[2019-02-06] MEDS: SERTRALINE 50 MG (ZOLOFT) TABLET PO SCH (08:26)
[2019-02-06] MEDS: ASPIRIN 81 MG CHEW (CHILDREN'S ASA) PO SCH (08:26)
[2019-02-06] MEDS: FAMOTIDINE 20 MG (PEPCID) TABLET PO SCH (08:26)
--- NOTE | 2019-02-06 09:27 | NUR ---
PRIOR TO A.M. MEDICATIONS PULSE WAS 57 AND B/P WAS 150/75
[2019-02-06] MEDS ORDERED: KCL 10 MEQ TAB (MICRO K) PO NR (10:00)
[2019-02-06] MEDS: MAGNESIUM 1 GM/100 ML IVPB 100 ML IV SCH (11:40)
--- NOTE | 2019-02-06 13:12 | Progress Note-Hospitalist ---
Subjective HPI/CC On Admission Date Seen by Provider: February 05, 2019 Time Seen by Provider: 13:30 The patient's a pleasant 88-year-old white male who noted for about the past week he was having increased shortness of breath initially just with exertion. The past several days he's noticed some intermittent palpitations without lighth eadedness or chest discomfort. He's had some orthopnea without PND. He went out to breakfast this morning and just the effort of walking back into the house from his car caused significant shortness of breath and fatigue. Because of the shortness of breath he alerted EMS services and was brought to the [place] emergency room. There he was noted to be in atrial fibrillation with no reported past history of atrial fibrillation. His rate was reportedly control I suspect that he was hypertensive as he has been hypertensive upon arrival here but did not see blood pressure from the emergency room sheet. He has received all of his care from the [place] and reports long-standing hypertension with no history of known coronary disease. He reports that he had been on lisinopril HCT but will switch to plain lisinopril. He is not sure why but he was noted to be hyponatremic with sodium level of 128 today which may be the reason. He doesn't recall being hyponatremic in the past that he has known of he was feeling a little bit confused with the shortness of breath but had not had any previous reported confusion. Subjective/Events-last exam Other than weakness patient voices no complaints. He denies chest pain or shortness of breath there's been no evidence for confusion and he said no palpitations. Objective Exam Vital Signs Vital Signs Date Time Temp Pulse Resp B/P (MAP) Pulse Ox O2 Delivery O2 Flow Rate FiO2 02/06/19 12:44 57 02/06/19 12:00 97.5 20 87/51 (63) 98 Room Air 02/05/19 15:37 2.00 Capillary Refill : Less Than 3 SecondsLess Than 3 Seconds General Appearance: No Apparent Distress, WD/WN HEENT: PERRL/EOMI, Normal ENT Inspection, Pharynx Normal, Moist Mucous Membranes Neck: Full Range of Motion, Normal Inspection, Non Tender Respiratory: Chest Non Tender, Lungs Clear, Normal Breath Sounds, No Accessory Muscle Use, No Respiratory Distress Cardiovascular: No Edema, No Gallop, No JVD, No Murmur, Normal Peripheral Pulses, Irregularly Irregular Gastrointestinal: Normal Bowel Sounds, No Organomegaly, No Pulsatile Mass, Non Tender, Soft Extremity: Normal Capillary Refill, Normal Inspection, Normal Range of Motion, Non Tender, No Calf Tenderness, No Pedal Edema Neurologic/Psychiatric: Alert, Oriented x3, Normal Mood/Affect Skin: Normal Color, Warm/Dry Results/Procedures Lab Laboratory Tests 02/05/19 13:37 02/06/19 04:22 Patient resulted labs reviewed. Assessment/Plan Assessment and Plan Assess & Plan/Chief Complaint A/P 1. Acute diastolic heart failure likely due to underlying hypertensive heart disease and acute or recent atrial fibrillation. Echocardiogram revealed an ejection fraction of 55-60 percent with visual findings suggesting significant diastolic dysfunction with mild left atrial chamber dilatation and mild concentric left ventricle hypertrophy. PA pressure was mildly elevated estimated at 35 mmHg. to hypotension and increasing BUN/creatinine significantly to 1.6 will be holding lisinopril carvedilol and furosemide. Patient was warned about orthostatic hypotension nursing staff was warned he will be getting up with assistance only today and was encouraged to increase fluid intake by several glasses of water more than his norm. 2. Hyponatremia is worse with sodium down to 125 despite being off GABRIEL inhibitor therapy. Vital signs of been stable otherwise. We will discontinue sertraline repeat in the morning and hold discharge. By mouth fluid intake has not been excessive.. 3. History of hyperthyroidism on low-dose methimazole TSH was normal. The medications not available here mellitus have the patient resume on discharge. 4. Hypertension history currently hypotensive see above. 5. Recent onset atrial fibrillation we will discuss anticoagulant therapy with the patient in more detail in the morning continue to hold today as the patient is a fall risk due to hypotension. Repeat BMP in the morning. Admission Status: Inpatient Order (span 2 midnights) Clinical Quality Measures DVT/VTE Risk/Contraindication: Risk Factor Score Per Nursin RFS Level Per Nursing on Admit: 4+=Very High NATALIE LANE MD February 06, 2019 13:12
--- NOTE | 2019-02-06 13:16 | Progress Note-Hospitalist ---
Subjective HPI/CC On Admission Date Seen by Provider: February 06, 2019 Time Seen by Provider: 10:00 The patient's a pleasant 88-year-old white male who noted for about the past week he was having increased shortness of breath initially just with exertion. The past several days he's noticed some intermittent palpitations without lighth eadedness or chest discomfort. He's had some orthopnea without PND. He went out to breakfast this morning and just the effort of walking back into the house from his car caused significant shortness of breath and fatigue. Because of the shortness of breath he alerted EMS services and was brought to the [place] emergency room. There he was noted to be in atrial fibrillation with no reported past history of atrial fibrillation. His rate was reportedly control I suspect that he was hypertensive as he has been hypertensive upon arrival here but did not see blood pressure from the emergency room sheet. He has received all of his care from the [place] and reports long-standing hypertension with no history of known coronary disease. He reports that he had been on lisinopril HCT but will switch to plain lisinopril. He is not sure why but he was noted to be hyponatremic with sodium level of 128 today which may be the reason. He doesn't recall being hyponatremic in the past that he has known of he was feeling a little bit confused with the shortness of breath but had not had any previous reported confusion. Subjective/Events-last exam Patient reports feeling about the same denies shortness of breath to some generalized fatigue. Staff report no confusion he denies chest pain palpitations or orthopnea or PND. Objective Exam Vital Signs Vital Signs Date Time Temp Pulse Resp B/P (MAP) Pulse Ox O2 Delivery O2 Flow Rate FiO2 02/06/19 12:44 57 02/06/19 12:00 97.5 20 87/51 (63) 98 Room Air 02/05/19 15:37 2.00 Capillary Refill : Less Than 3 SecondsLess Than 3 Seconds General Appearance: No Apparent Distress, WD/WN HEENT: PERRL/EOMI, Normal ENT Inspection, Pharynx Normal, Moist Mucous Membranes Neck: Full Range of Motion, Normal Inspection, Non Tender Respiratory: Chest Non Tender, Lungs Clear, Normal Breath Sounds, No Accessory Muscle Use, No Respiratory Distress Cardiovascular: No Edema, No Gallop, No JVD, No Murmur, Normal Peripheral Pulses, Irregularly Irregular Gastrointestinal: Normal Bowel Sounds, No Organomegaly, No Pulsatile Mass, Non Tender, Soft Extremity: Normal Capillary Refill, Normal Inspection, Normal Range of Motion, Non Tender, No Calf Tenderness, No Pedal Edema Neurologic/Psychiatric: Alert, Oriented x3, Normal Mood/Affect Skin: Normal Color, Warm/Dry Results/Procedures Lab Laboratory Tests 02/05/19 13:37 02/06/19 04:22 Patient resulted labs reviewed. Assessment/Plan Assessment and Plan Assess & Plan/Chief Complaint A/P 1. Acute diastolic heart failure likely due to underlying hypertensive heart disease and acute or recent atrial fibrillation. His rate remains controlled and there is no evidence for ongoing heart failure. Blood pressure is been reasonable despite holding all antihypertensive medications as well as furosemide.. 2. Hyponatremia slightly improved sodium level up from 125-128 raising the possibility of sertraline which is been discontinued. Unfortunately his potassium was down to 2.8 and subsequent magnesium level was low at 1.4. In the process of replacing via IV magnesium and by mouth potassium. As long as electrolyte levels are improving discussed likely discharge in the morning. 3. History of hyperthyroidism on low-dose methimazole TSH was normal. The medications not available here mellitus have the patient resume on discharge. 4. Hypertension continues to be under reasonable control despite no medication will continue to hold. 5. Recent onset atrial fibrillation we will discuss anticoagulant therapy with the patient in more detail in the morning continue to hold today as the patient is a fall risk due to hypotension. Repeat BMP in the morning. Admission Status: Inpatient Order (span 2 midnights) Clinical Quality Measures DVT/VTE Risk/Contraindication: Risk Factor Score Per Nursin RFS Level Per Nursing on Admit: 4+=Very High NATALIE LANE MD February 06, 2019 13:16
[2019-02-06] MEDS: KCL 10 MEQ TAB (MICRO K) PO SCH (17:22)
[2019-02-06] MEDS: TAMSULOSIN 0.4 MG (FLOMAX) CAP PO SCH (19:56)
[2019-02-06] MEDS: ATORVASTATIN 10 MG (LIPITOR) TABLET PO SCH (19:56)
[2019-02-06] MEDS: traZODone 100 MG (DESYREL) TAB PO SCH (19:57)
[2019-02-06] MEDS: oxyCODONE/APAP 5/325MG (PERCOCET 5) TABLET PO PRN (19:57)
[2019-02-07] MEDS: oxyCODONE/APAP 5/325MG (PERCOCET 5) TABLET PO PRN (01:33)
[2019-02-07 04:13] VITALS: BP 106/53
[2019-02-07] MEDS: KCL 10 MEQ TAB (MICRO K) PO SCH (06:14)
[2019-02-07 07:17] VITALS: BP 131/63
[2019-02-07] MEDS: FAMOTIDINE 20 MG (PEPCID) TABLET PO SCH (08:33)
[2019-02-07] MEDS: ASPIRIN 81 MG CHEW (CHILDREN'S ASA) PO SCH (08:33)
[2019-02-07 08:51] LABS: CALCIUM 9.3 MG/DL (8.5-10.1); CREATININE SERUM 1.48 MG/DL (0.60-1.30)
[2019-02-07] MEDS ORDERED: POTA10TA10 PO (09:20)
--- NOTE | 2019-02-07 10:44 | Discharge Summary-Hospitalist ---
Diagnosis/Chief Complaint Date of Admission February 03, 2019 at 12:23 Date of Discharge Discharge Date: February 07, 2019 Discharge Time: 10:36 Admission Diagnosis A/P 1. Acute diastolic heart failure likely due to underlying hypertensive heart disease and acute or recent atrial fibrillation. Echocardiogram revealed an ejection fraction of 55-60 percent with visual findings suggesting significant diastolic dysfunction with mild left atrial chamber dilatation and mild concentric left ventricle hypertrophy. PA pressure was mildly elevated estimated at 35 mmHg. We'll continue furosemide and repeat basic metabolic panel in the morning. 2. Hyponatremia unclear etiology there is no evidence to suggest significant volume overload we will repeat basic metabolic panel in the morning. 3. History of hyperthyroidism on low-dose methimazole TSH was normal. The medications not available here mellitus have the patient resume on discharge. 4. Hypertension exacerbated by heart failure continue IV diuretics and have added carvedilol 6.25 mg twice a day. 5. Recent onset atrial fibrillation we will discuss anticoagulant therapy with the patient in more detail in the morning. Discharge Summary Discharge Physical Exam Allergies: Coded Allergies: simvastatin (Verified Allergy, Unknown, Takes Atorvastatin at home, 02/03/19) Vitals & I&Os Vital Signs Date Time Temp Pulse Resp B/P (MAP) Pulse Ox O2 Delivery O2 Flow Rate FiO2 02/07/19 08:00 94 Room Air 2.00 02/07/19 07:17 97.8 72 18 131/63 (85) General Appearance: No Apparent Distress Respiratory: Chest Non Tender, Lungs Clear, Normal Breath Sounds, No Accessory Muscle Use, No Respiratory Distress Cardiovascular: No Edema, No Gallop, No Murmur, Irregularly Irregular Extremity: No Pedal Edema Neurologic/Psychiatric: Alert, Oriented x3 Hospital Course Was the Problem List Reviewed?: Yes Patient states that for several days prior to presenting to the [facility] emergency room he felt increasingly weak there was some component of dyspnea on exertion but no chest symptoms or cough. When he returned from breakfast on the day of this admission just the effort of walking into his house cause extreme sensation of fatigue without any dizziness or chest symptoms. When he presented the emergency room in [place] he was noted to be in atrial fibrillation and as I recall ventricular response was fast as I recall however no higher than the 130-140 beat per minute range he was given some Cartia some and a BNP level was elevated around 1200 and troponin level was mildly elevated as well. He was admitted for rate control and treatment of presumed heart failure. EKG revealed no acute ischemic changes. Subsequent echocardiogram revealed findings compatible hypertensive heart disease he had LVH with evidence for diastolic dysfunction and mild left atrial chamber dilatation with preserved ventricular function estimated ejection fraction of 55-60 percent with no segmental wall motion abnormalities being appreciated and the mildly elevated PA pressure estimated at 35 with no significant valvular pathology. He received 2 or 3 doses of IV Lasix and had a baseline creatinine of 1.1 which increased to 1.8 by a second hospital day Lasix was discontinued Cardizem was discontinued and his ventricular response remain controlled with low normal blood pressures. He also had hyponatremia on admission with a level of 128 it dropped to 125 without any worsening anemia in his baseline symptoms now. Furosemide was discontinued as well as sertraline. I suspect that he is having ongoing issue with sodium as he stated [facility] plain lisinopril. In going through his medication list sertraline was Thing else that may be contributing. He has no symptoms to suggest underlying malignancy with negative chest x-ray. He was ambulating without difficulty and no evidence for acute coronary syndrome. Multiple home medications were discontinued and he was discharged on no antihypertensive medication with stable vital signs and heart rate in the 60-80 bpm range in no acute distress. He is advised to follow-up with the [place] in 1-2 weeks. In addition his magnesium level and potassium levels were low with IV replacement. Potassium was 3 and he was discharged on 10 mg once a potassium daily and advised to have these levels checked again at the [place] in 1-2 weeks. Labs (last 24 hrs) Laboratory Tests 02/07/19 08:10: Sodium Level 127L, Potassium Level 3.0L, Chloride Level 89L, Carbon Dioxide Level 28, Anion Gap 10, Blood Urea Nitrogen 38H, Creatinine 1.48H, Estimat Glomerular Filtration Rate 45, BUN/Creatinine Ratio 26, Glucose Level 165H, Calcium Level 9.3 Patient resulted labs reviewed. Pending Labs Laboratory Tests 02/07/19 08:10: Sodium Level 127, Potassium Level 3.0, Chloride Level 89, Carbon Dioxide Level 28, Anion Gap 10, Blood Urea Nitrogen 38, Creatinine 1.48, Estimat Glomerular Filtration Rate 45, BUN/Creatinine Ratio 26, Glucose Level 165, Calcium Level 9.3 Discussion & Recommendations Discharge Planning: >30 minutes discharge planning Discharge Home Medications: Active Scripts Active Potassium Chloride 10 Meq Tablet.er 10 Meq PO DAILY 15 Days Reported Glycerin 1 Each Supp.rect 1 Supp.rect RC DAILY PRN Methimazole 5 Mg Tablet 2.5 Mg PO HS TAKES 1/2 (5MG) TABLET Co Q-10 100 mg Softgel (Ubidecarenone/Vit E Acetate) 1 Each Capsule 100 Mg PO DAILY Tramadol HCl 50 Mg Tablet 50 Mg PO QID PRN Finasteride 5 Mg Tablet 5 Mg PO HS Famotidine 20 Mg Tablet 20 Mg PO DAILY Vitamin D-3 (Cholecalciferol (Vitamin D3)) 2,000 Unit Capsule 2,000 Unit PO DAILY Aspir 81 (Aspirin) 81 Mg Tablet.dr 81 Mg PO DAILY Instructions to patient/family Please see electronic discharge instructions given to patient. Clinical Quality Measures DVT/VTE Risk/Contraindication: Risk Factor Score Per Nursin RFS Level Per Nursing on Admit: 4+=Very High NATALIE LANE MD February 07, 2019 10:44
[2019-02-07 11:10] VITALS: BP 131/63
[2019-02-07 11:17] VITALS: BP 126/66
== END 2019-02-07 12:20 | disposition home or self-care (01) | DRG 291 ==
LOC: EDUNIT# 09:12 → ER FS 09:14 → 4TH 12:23
PROVIDERS: ADMIT Internal Medicine; ATTEND Internal Medicine
DX: I11.0 Hypertensive heart disease with heart failure (principal); I50.31 Acute diastolic (congestive) heart failure; I48.91 Unspecified atrial fibrillation; E87.1 Hypo-osmolality and hyponatremia; E78.00 Pure hypercholesterolemia, unspecified; R35.0 Frequency of micturition; R30.0 Dysuria; Z66 Do not resuscitate; E05.90 Thyrotoxicosis, unspecified without thyrotoxic crisis or storm; H91.93 Unspecified hearing loss, bilateral; Z97.4 Presence of external hearing-aid; Z91.81 History of falling
CPT/HCPCS: 36415; 71045; 80048; 81000; 83735; 83880; 84443; 84484; 85025; 93306

== ENCOUNTER 2019-08-21 16:40 | Inpatient (IN) | payer MEDICARE ==
[2019-08-21] VITALS (7 sets, daily range): BP systolic 102–161; BP diastolic 59–97
[~2019-08-21] VITALS: Ht 177.8 cm; Wt 76.8 kg
[~2019-08-21 16:40] MED LIST changes: +GLYC-12 RC; -LISI1TAB10 PO; +LISI1TAB26 PO; +METH5TAB5 PO; +POTA10TA10 PO; -TAMS0.4C98 PO; +TMSL.4C PO; -TRAM50TA2 PO; +TRM50T PO; +UBID1CAP53 PO
--- NOTE | 2019-08-21 16:51 | ED General ---
General Stated Complaint: SOB Source of Information: Patient, EMS Exam Limitations: No Limitations History of Present Illness Date Seen by Provider: Aug 21, 2019 Time Seen by Provider: 16:35 Initial Comments The patient is a pleasant 88-year-old male presents for evaluation of generalized fatigue, nasal congestion, and shortness of breath over the last few days. He arrives via EMS. EMS reports that he was being visited by his home health nurse who felt like he was more weak and short of breath and usual. He is alert, calm, and appears to be in no distress. He is saturating well on room air. He denies fevers or chills, chest pain, back pain, significant abdominal discomfort, urinary complaints, rash, vision changes, focal weakness or numbness, headache, neck pain, palpitations or syncope. Timing/Duration: 1-2 Days Severity: Mild Associated Systoms: Shortness of Air Allergies and Home Medications Allergies Coded Allergies: simvastatin (Verified Allergy, Unknown, Takes Atorvastatin at home, ) Home Medications Aspirin 81 Mg Tablet.dr, 81 MG PO DAILY, (Reported) Cholecalciferol (Vitamin D3) 2,000 Unit Capsule, 2,000 UNIT PO DAILY, (Reported) Famotidine 20 Mg Tablet, 20 MG PO DAILY, (Reported) Finasteride 5 Mg Tablet, 5 MG PO HS, (Reported) Glycerin 1 Each Supp.rect, 1 SUPP.RECT RC DAILY PRN for CONSTIPATION, (Reported) Methimazole 5 Mg Tablet, 2.5 MG PO HS, (Reported) TAKES 1/2 (5MG) TABLET Potassium Chloride 10 Meq Tablet.er, 10 MEQ PO DAILY Prescribed by: NATALIE LANE on 02/07/19 0920 Tramadol HCl 50 Mg Tablet, 50 MG PO QID PRN for PAIN-MODERATE, (Reported) Ubidecarenone/Vit E Acetate 1 Each Capsule, 100 MG PO DAILY, (Reported) Patient Home Medication List Home Medication List Reviewed: Yes Review of Systems Review of Systems Constitutional: malaise, weakness EENTM: nose congestion Respiratory: short of breath Cardiovascular: no symptoms reported Gastrointestinal: no symptoms reported Genitourinary: no symptoms reported Musculoskeletal: no symptoms reported Skin: no symptoms reported Psychiatric/Neurological: No Symptoms Reported Hematologic/Lymphatic: No Symptoms Reported Immunological/Allergic: no symptoms reported All Other Systems Reviewed Negative Unless Noted: Yes Past Xmjlggx-Yvjnfj-Hcbxgw Hx Past Med/Social Hx: Reviewed Nursing Past Med/Soc Hx Patient Social History Former Smoker, Quit: Nov 30, 1977 2nd Hand Smoke Exposure: No Recent Foreign Travel: No Contact w/Someone Who Travel: No Recent Hopitalizations: No Immunizations Up To Date Date of Influenza Vaccine: Aug 02, 2018 Seasonal Allergies Seasonal Allergies: No Past Medical History Surgeries: Yes (LEFT HIP) Respiratory: No High Cholesterol, Hypertension Neurological: No Gastrointestinal: No Endocrine: No Hearing Impairment: Hard of Hearing, Bilateral Hearing Aide Cancer: No Psychosocial: No Integumentary: No Physical Exam Vital Signs Vital Signs - First Documented 08/21/19 16:40 Temp 37.6 Pulse 57 Resp 24 B/P (MAP) 139/60 (86) Pulse Ox 95 O2 Delivery Room Air Capillary Refill : Height, Weight, BMI Height: 5'10.00" Weight: 143lbs. 6.0oz. 65.284383zd; 21.0 BMI Method:Stated General Appearance: No Apparent Distress, WD/WN Eyes: Bilateral Eye Normal Inspection, Bilateral Eye PERRL, Bilateral Eye EOMI HEENT: PERRL/EOMI, Pharynx Normal, Moist Mucous Membranes Neck: Full Range of Motion, Normal Inspection, Supple Respiratory: Chest Non Tender, Lungs Clear, Normal Breath Sounds, No Accessory Muscle Use, No Respiratory Distress Cardiovascular: No Edema, No JVD, No Murmur, Bradycardia Gastrointestinal: Normal Bowel Sounds, Non Tender, Soft Back: Normal Inspection Extremity: Normal Capillary Refill, Normal Range of Motion, Non Tender, No Calf Tenderness Neurologic/Psychiatric: Alert, Oriented x3, No Motor/Sensory Deficits, Normal Mood/Affect Skin: Normal Color, Warm/Dry Progress/Results/Core Measures Suspected Sepsis SIRS Temperature: Pulse: Respiratory Rate: Laboratory Tests 08/21/19 16:40: White Blood Count 9.4 Blood Pressure / Mean: Laboratory Tests 08/21/19 16:40: Platelet Count 199 Results/Orders Lab Results Laboratory Tests Test 08/21/19 16:40 Range/Units White Blood Count 9.4 4.3-11.0 10^3/uL Red Blood Count 4.04 L 4.35-5.85 10^6/uL Hemoglobin 12.3 L 13.3-17.7 G/DL Hematocrit 38 L 40-54 % Mean Corpuscular Volume 93 80-99 FL Mean Corpuscular Hemoglobin 30 25-34 PG Mean Corpuscular Hemoglobin Concent 33 32-36 G/DL Red Cell Distribution Width 14.8 H 10.0-14.5 % Platelet Count 199 130-400 10^3/uL Mean Platelet Volume 9.9 7.4-10.4 FL Neutrophils (%) (Auto) 82 H 42-75 % Lymphocytes (%) (Auto) 7 L 12-44 % Monocytes (%) (Auto) 11 0-12 % Eosinophils (%) (Auto) 0 0-10 % Basophils (%) (Auto) 0 0-10 % Neutrophils # (Auto) 7.7 1.8-7.8 X 10^3 Lymphocytes # (Auto) 0.7 L 1.0-4.0 X 10^3 Monocytes # (Auto) 1.0 0.0-1.0 X 10^3 Eosinophils # (Auto) 0.0 0.0-0.3 10^3/uL Basophils # (Auto) 0.0 0.0-0.1 10^3/uL My Orders Orders - ROSE BANDA DO Cbc With Automated Diff (08/21/19 16:41) Comprehensive Metabolic Panel (08/21/19 16:41) Probnp Fs (08/21/19 16:41) Troponin I Fs (08/21/19 16:41) Continuous Ekg Monitoring (08/21/19 16:41) Ekg Tracing (08/21/19 16:41) Influenza A And B Antigens (08/21/19 16:41) Continuous Pulse Ox (08/21/19 16:41) Urinalysis (08/21/19 16:41) Manual Differential (08/21/19 16:40) Aspirin Chewable Tablet (Baby Aspirin Ch (08/21/19 17:15) Heparin (Bolus Per Protocol) (Heparin (B (08/21/19 17:15) Chest 1 View Ap/Pa Only (08/21/19 16:41) Vital Signs/I&O 08/21/19 16:40 Temp 37.6 Pulse 57 Resp 24 B/P (MAP) 139/60 (86) Pulse Ox 95 O2 Delivery Room Air Capillary Refill : Progress Note : Progress Note @1658 - EKG shows inferior wall STEMI. Dr. Rodriguez called and states to transfer the pt immediately to the roofing laborer at [facility]. He states to give a full- strength ASA and 5000U IV Heparin. ECG EKG : Comment EKG@1653 - atrial fibrillation with a slow ventricular response, rate of 56, inferior wall STEMI is present, cardiology notified Departure Communication (Admissions) Time/Spoke to Admitting Phy: 17:00 Dr. Rodriguez (cardiology) accepts the transfer to the roofing laborer at [facility] Impression Primary Impression: Acute PR, inferior wall Disposition: ADMITTED INPATIENT Condition: Critical Admissions Decision to Admit Reason: Admit from ER (Trauma) Decision to Admit/Date: Aug 21, 2019 Time/Decision to Admit Time: 17:00 Transfer Method of Transfer: EMS Departure-Patient Inst. Referrals: NO,LOCAL PHYSICIAN (PCP/Family) Primary Care Physician ROSE BANDA DO Aug 21, 2019 16:51 POS
[2019-08-21 17:00] LABS: BASOPHILS % (AUTO) 0 % (0-10); EOSINOPHILS % (AUTO) 0 % (0-10); HEMATOCRIT 38 % (40-54); HEMOGLOBIN 12.3 G/DL (13.3-17.7); LYMPHOCYTES # (AUTO) 0.7 X 10^3 (1.0-4.0); LYMPHOCYTES % (AUTO) 7 % (12-44); MEAN CORPUSCULAR HEMOGLOBIN 30 PG (25-34); MEAN CORPUSCULAR HGB CONC 33 G/DL (32-36); MEAN CORPUSCULAR VOLUME 93 FL (80-99); MEAN PLATELET VOLUME 9.9 FL (7.4-10.4); MONOCYTES % (AUTO) 11 % (0-12); NEUTROPHILS # (AUTO) 7.7 X 10^3 (1.8-7.8); NEUTROPHILS % (AUTO) 82 % (42-75); PLATELET COUNT 199 10^3/uL (130-400); RED CELL DISTRIBUTION WIDTH 14.8 % (10.0-14.5); WHITE BLOOD COUNT 9.4 10^3/uL (4.3-11.0)
[2019-08-21] MEDS ORDERED: ASPIRIN 81 MG CHEW (CHILDREN'S ASA) PO ONE (17:15)
[2019-08-21] MEDS ORDERED: HEParin 1000 UNIT/ML (10ML VIAL) FOR BOLUS IV SCH (17:15)
[2019-08-21] MEDS ORDERED: HEParin 1000 UNIT/ML (10ML VIAL) FOR BOLUS ONE (17:16)
[2019-08-21] MEDS ORDERED: fentaNYL INJECTION 100 MCG/2 ML AMP ONE (17:16)
[2019-08-21] MEDS ORDERED: MIDAZOLAM 5 MG/5 ML (VERSED) VIAL ONE (17:16)
[2019-08-21] MEDS ORDERED: HEParin (CATH LAB) 2,000 ML IV ONE (17:17)
[2019-08-21] MEDS ORDERED: LIDOCAINE 1% INJ 20 ML 20 ML VIAL ONE (17:17)
[2019-08-21] MEDS ORDERED: NS IV 1000 ML 1,000 ML ONE (17:17)
[2019-08-21] MEDS ORDERED: NITRO DRIP 25000 MCG/D5W 0 ML IV ONE (17:18)
--- NOTE | 2019-08-21 17:19 | Diagnostic Imaging Report ---
EXAMINATION: Chest radiograph, portable AP view. DATE: 08/21/2019 5:08 PM hours. INDICATION: 88-year-old male, generalized weakness. Shortness of breath. COMPARISON: February 03, 2019. FINDINGS: Stable overall appearance of the cardiomediastinal silhouette. There are aortic calcifications. There is no identified pneumothorax. There is no large pleural effusion. There are streaky opacities in the right lung base which appear mildly increased since the comparison exam. IMPRESSION: 1. Streaky opacities in the right lung base which appear mildly more prominent since comparison exam and may relate to infiltrate, atelectasis, and/or scarring. Dictated by: Dictated on workstation # [id number]
[2019-08-21 17:22] LABS: BAND NEUTROPHILS 0 %; BASOPHILS % (MANUAL) 0 %; EOSINOPHILS % (MANUAL) 0 %; LYMPHOCYTES % (MANUAL) 12 %; MONOCYTES % (MANUAL) 9 %; NEUTROPHILS % (MANUAL) 79 %; RBC MORPH NORMAL
[2019-08-21 17:31] LABS: BILIRUBIN,TOTAL 0.6 MG/DL (0.1-1.0); CALCIUM 9.5 MG/DL (8.5-10.1); CREATININE SERUM 1.17 MG/DL (0.60-1.30); POTASSIUM 4.8 MMOL/L (3.6-5.0)
[2019-08-21 17:33] LABS: ALBUMIN 3.9 GM/DL (3.2-4.5); TOTAL PROTEIN 6.7 GM/DL (6.4-8.2)
--- NOTE | 2019-08-21 17:53 | NUR ---
1710: Called dispatch to page out transfer. 1715: EMS here to transport patient. 1719: Patient departed facility with [facility].
[2019-08-21] MEDS ORDERED: ATROPINE INJECTION 1 MG/10 ML SYR (ABBOTT) ONE (18:01)
--- NOTE | 2019-08-21 18:40 | Cardiology History & Physical ---
HPI-Cardiology Cardiology Consultation Date of Consultation 08/21/19 Date of Admission Time Seen by Provider: 17:00 Indication: Acute myocardial infarction HPI 88 years old gentleman with history of hypertension, hyperlipidemia, chronic kidney disease, was having increasing shortness of breath, denied any chest pain, noted by his home health to have increasing dyspnea, sent to the emergency room where he was noted to have ST elevation in the inferior leads. Denied any active chest pain. Noted to have troponin of 70. Patient was transferred directly to the [facility] PM-Cardiology Immunizations Up To Date Date of Influenza Vaccine: Aug 02, 2018 Seasonal Allergies Seasonal Allergies: No Surgeries Yes (LEFT HIP) Respiratory No Cardiovascular Yes Neurological No Genitourinary No Gastrointestinal No Musculoskeletal No Endocrine No HEENT Yes Hearing Impairment: Hard of Hearing, Bilateral Hearing Aide Cancer No Psychosocial No Integumentary No Social History Patient Social History Marrital Status: single Employed/Student: retired Alcohol Use: Occasionally Uses Recreational Drug Use: No Recent Foreign Travel: No Contact w/other who traveled: No Recent Infectious Disease Expo: No Family Hx Other noncontributory, patient is 88 years old ROS-Cardiology Review of Systems General: No Chills, No Night Sweats; Fatigue; No Malaise, No Appetite HEENT: No Head Aches, No Visual Changes, No Eye Pain, No Ear Pain, No Dysphasia, No Sinus Congestion, No Post Nasal Drip, No Sore Throat Pulmonary: Dyspnea; No Cough, No Pleuritic Chest Pain Cardiovascular: Edema; No: Chest Pain, Palpitations, Orthopnea, Paroxysmal Noc. Dyspnea, Lt Headedness Gastrointestinal: No: Nausea, Vomiting, Abdominal Pain, Diarrhea, Constipation, Melena, Hematochezia Genitourinary: No Dysuria, No Frequency, No Incontinence, No Hematuria, No R etention Musculoskeletal: No: neck pain, shoulder pain, arm pain, back pain, hand pain, leg pain, foot pain Neurological: No: Weakness, Numbness, Incoordination, Change in speech, Confusion, Seizures Home Medications & Allergies Allergies: Coded Allergies: simvastatin (Verified Allergy, Unknown, Takes Atorvastatin at home, 02/03/19) Home Medication List Reviewed: Yes Exam-Cardiology Vital Signs Vital Signs Date Time Temp Pulse Resp B/P (MAP) Pulse Ox O2 Delivery O2 Flow Rate FiO2 08/21/19 17:10 37.7 53 19 140/68 94 Room Air Exam General Appearance: Alert, Oriented X3, Cooperative, No Acute Distress HEENT: Atraumatic, PERRLA Respiratory: Normal Air Movement, Other Cardiovascular: Regular Rate, Normal S1, Normal S2, Other (S3 is present, systolic murmur at the left sternal border) Abdominal: Normal Bowel Sounds, Soft, No Tenderness, No Hepatosplenomegaly, No Masses Extremities: No Clubbing, No Cyanosis, No Edema, Normal Pulses, No Tenderness/Swelling Skin: No Rashes, No Breakdown, No Significant Lesion Neuro: Normal Speech, Strength at 5/5 X4 Ext, Normal Tone, Sensation Intact Psych/Mental Status: Mental Status NL, Mood NL Results Labs Labs Laboratory Tests 08/21/19 16:40: White Blood Count 9.4, Red Blood Count 4.04L, Hemoglobin 12.3L, Hematocrit 38L, Mean Corpuscular Volume 93, Mean Corpuscular Hemoglobin 30, Mean Corpuscular Hemoglobin Concent 33, Red Cell Distribution Width 14.8H, Platelet Count 199, Me an Platelet Volume 9.9, Neutrophils (%) (Auto) 82H, Lymphocytes (%) (Auto) 7L, Monocytes (%) (Auto) 11, Eosinophils (%) (Auto) 0, Basophils (%) (Auto) 0, Neutrophils # (Auto) 7.7, Lymphocytes # (Auto) 0.7L, Monocytes # (Auto) 1.0, Eosinophils # (Auto) 0.0, Basophils # (Auto) 0.0, Neutrophils % (Manual) 79, Lymphocytes % (Manual) 12, Monocytes % (Manual) 9, Eosinophils % (Manual) 0, Basophils % (Manual) 0, Band Neutrophils 0, Blood Morphology Comment NORMAL, Sodium Level 135, Potassium Level 4.8, Chloride Level 99, Carbon Dioxide Level 24, Anion Gap 12, Blood Urea Nitrogen 25H, Creatinine 1.17, Estimat Glomerular Filtration Rate 59, BUN/Creatinine Ratio 21, Glucose Level 140H, Calcium Level 9.5, Corrected Calcium 9.6, Total Bilirubin 0.6, Aspartate Amino Transf (AST/SGOT) 387H, Alanine Aminotransferase (ALT/SGPT) 215H, Alkaline Phosphatase 87, Troponin I 70.20*H, Pro-B-Type Natriuretic Peptide 4982.0H, Total Protein 6.7, Albumin 3.9 Microbiology 08/21/19 Influenza Types A,B Antigen (TOD) - Final, Complete A/P-Cardiology Admission Diagnosis Subacute myocardial infarction Coronary artery disease Congestive heart failure Hypertension Admission Status: Inpatient Order (span 2 midnights) Reason for Inpatient Admission: Inferior wall myocardial infarction, congestive heart failure Assessment/Plan Subacute myocardial infarction, inferior wall AZ, brought from the emergency room, already have troponin of 70, denied any chest pain but having increasing d yspnea. For emergency cardiac catheterization appeared to have chronic total occlusion of the right coronary artery, attempt for intervention has failed, balloon angioplasty to the ostium of the right coronary artery without success in establishing flow. Coronary artery disease multivessel disease, severe ostial left main, proximal LAD, mid circumflex and total occlusion of the right coronary artery, medical therapy is recommended Congestive heart failure, acute left ventricular systolic dysfunction, ischemic cardiomyopathy, will start diuretics and monitor tolerance and response Paroxysmal atrial fibrillation by history Hypertension, started to blockers and monitor Hyperlipidemia I will start her on high-dose Lipitor Hyperthyroidism Degenerative joint disease Patient requested DO NOT RESUSCITATE SANKET SANCHEZ MD Aug 21, 2019 18:40 POS
[2019-08-21] MEDS ORDERED: PATIENT MAY USE OWN MEDS, ALL PO SCH (18:45)
--- NOTE | 2019-08-21 18:47 | Cardiac Procedure Note-CS/ASA ---
Pre-Procedure Note Pre-Op Procedure Note H&P Reviewed The H&P was reviewed, patient examined and no changes noted. Date H&P Reviewed: Aug 21, 2019 Time H&P Reviewed: 17:00 Conscious Sedation Pre-Proced Time 17:00 ASA Score 4 For ASA 3 and 4: Consider anesthesia and medical clearance. Also, for patients with a history of failed moderate sedation consider anesthesia. Airway Lungs Heart ASA score ASA 1: a normal healthy patient ASA 2: a patient with a mild systemic disease (mid diabetes, controlled hypertension, obesity ASA 3: a patient with a severe systemic disease that limits activity (angina, COPD, prior Myocardial infarction) x ASA 4: a patient with an incapacitating disease that is a constant threat to life (CHF, renal failure) ASA 5: a moribund patient not expected to survive 24 hrs. (ruptured aneurysm) ASA 6: a declared brain- patient whose organs are being harvested. For emergent operations, add the letter E after the classification Mallampati Classification Grade 3 Sedation Plan Analgesia, Amnesia, Plan communicated to team members, Discussed options with patient/fam, Discussed risks with patient/fam The patient is an appropriate candidate to undergo the planned procedure, sedation, and anesthesia. The patient immediately re-assessed prior to indication. SANKET SANCHEZ MD Aug 21, 2019 18:47 POS
[2019-08-21] MEDS ORDERED: CLOPIDOGREL 300 MG (PLAVIX) TABLET PO ONE ×2 (18:54→19:00)
--- NOTE | 2019-08-21 18:54 | Cardiac Cath Report ---
Cardiac Cath Report Physician (s)/Validation Intern (s) Physician SANKET SANCHEZ MD Pre-Procedure Diagnosis Pre-Procedure Diagnosis: Subacute myocardial infarction Post-Procedure Note Procedure Start Date: Aug 21, 2019 Name of Procedure: Left heart catheterization Left ventricular gram Aortic arch angiogram Emergency balloon angioplasty to the right coronary artery Findings/Procedure Note PROCEDURE NOTE: 88 years old gentleman with history of hypertension, congestive heart failure, paroxysmal atrial fibrillation, noted by his home health to have increasing shortness of breath. Was sent to the emergency room and noted to have ST elevation in the inferior leads, denied any active chest pain, Client Development Consultant was activated and patient was transferred from [place] for emergency cardiac catheterization possible PTCA. On arrival patient denied any chest pain, breathing was mildly dyspneic. Troponin level was 70 suggestive of subacute myocardial infarction After explaining the procedure to the patient, all pros and cons were explained, all questions were answered. The patient signed the consent and then he was placed on the cardiac catheterization laboratory. Groin was prepped SL fashion local anesthesia was used. Sheath placed in the right femoral artery. Chana right and left catheter were used to access the coronary system. Pigtail was used to access the left ventricular cavity. I used a long exchange J-wire due to the tortuous abdominal and iliac arteries Patient received 5000 unit of heparin in the emergency room, ACT was over 200, noted to have severe ostial left main, total occlusion of the right coronary artery that I felt it is the culprit lesion I attempted to cross the lesion without any success to artery is heavily calcified diffusely, appear to be chronic disease, multiple attempts with BMW wire failed then I used a whisper wire without success I used 2 x 15 balloon to help support the wire then I adjusted in the ostium of the right coronary artery and did balloon inflation at the ostium of the right coronary artery and advanced the wire without success in crossing the heavily calcified lesion with multiple wires, at that point I felt that this is a chronic total occlusion on top of severe diseased artery, I was able to visualize the whole artery from the calcium. Patient was not having any chest pain. Left ventriculogram was done Aortic arch angiogram was done to evaluate the arch with a heavily calcification through followed the aorta At the end of the procedure the sheath was removed. Closure device was used FINDINGS: Hemodynamics LV 154/17, end-diastolic pressure of 17 Aorta 156/62 with mean of 91 ANATOMY: Left Main has severe ostial stenosis Left Anterior Descending is calcified artery with severe stenosis proximally, diffuse disease Left Circumflex has moderate disease Right Coronory Artery is heavily calcified artery totally occluded proximally, multiple attempts to cross the lesion without success, balloon inflation in the ostium of the right coronary artery to support the wire without the ability to advance the wire LV Gram is dilated with diffuse left ventricular hypokinesia estimated ejection fraction 25 percent Aorta evaluation showed heavily calcified aortic arch, no dissection or aneurysm, origin of the innominate artery, left carotid artery and left subclavian artery showed calcified arteries with no obstructive disease CONCLUSION: 1. Subacute ST elevation myocardial infarction with total occlusion of the right coronary artery failed multiple attempts to cross the lesion, balloon angioplasty to the ostium of the right coronary artery to support the wire with attempt to cross while the balloon is inflated without success 2. Severe ostial left main coronary artery stenosis, severe proximal LAD sten osis and moderate disease in the circumflex artery 3. Diffuse left ventricular hypokinesia with estimated ejection fraction 25 percent 4. Heavily calcified aortic arch and aorta with no dissection or aneurysm DISCUSSION AND RECOMMENDATION: I will continue with medical therapy at this time, patient is not a candidate for bypass surgery due to his extensive disease and his age, I will continue with medical therapy Anesthesia Type: Conscious Sedation Estimated blood loss (mL): 35 ml Contrast Amount: 109 ml Total Radiation Dose: 1264 mGy Post-Procedure Diagnosis Post-operative diagnosis: Subacute myocardial infarction Coronary artery disease Hypertension Hyperlipidemia SANKET SANCHEZ MD Aug 21, 2019 18:54 POS
[2019-08-22] VITALS (12 sets, daily range): BP systolic 104–139; BP diastolic 55–92
[2019-08-22 02:57] LABS: BASOPHILS % (AUTO) 0 % (0-10); EOSINOPHILS % (AUTO) 0 % (0-10); HEMATOCRIT 34 % (40-54); HEMOGLOBIN 11.2 G/DL (13.3-17.7); LYMPHOCYTES # (AUTO) 0.6 X 10^3 (1.0-4.0); LYMPHOCYTES % (AUTO) 8 % (12-44); MEAN CORPUSCULAR HEMOGLOBIN 30 PG (25-34); MEAN CORPUSCULAR HGB CONC 33 G/DL (32-36); MEAN CORPUSCULAR VOLUME 91 FL (80-99); MONOCYTES # (AUTO) 1.3 X 10^3 (0.0-1.0); MONOCYTES % (AUTO) 16 % (0-12); NEUTROPHILS # (AUTO) 6.4 X 10^3 (1.8-7.8); NEUTROPHILS % (AUTO) 77 % (42-75); PLATELET COUNT 169 10^3/uL (130-400); RED CELL DISTRIBUTION WIDTH 14.9 % (10.0-14.5); WHITE BLOOD COUNT 8.3 10^3/uL (4.3-11.0)
[2019-08-22 03:17] LABS: ALANINE AMINOTRANSFERASE 188 U/L (0-55); ALBUMIN 3.5 GM/DL (3.2-4.5); ALKALINE PHOSPHATASE 80 U/L (40-136); BILIRUBIN,TOTAL 0.9 MG/DL (0.1-1.0); BUN/CREATININE RATIO 23; CALCIUM 8.9 MG/DL (8.5-10.1); CARBON DIOXIDE 19 MMOL/L (21-32); CHLORIDE 104 MMOL/L (98-107); CHOLESTEROL 139 MG/DL (< 200); CREATININE SERUM 1.04 MG/DL (0.60-1.30); GFR ESTIMATED > 60; GLUCOSE 127 MG/DL (70-105); HDL CHOLESTEROL 53 MG/DL (40-60); MAGNESIUM 1.8 MG/DL (1.6-2.4); PHOSPHORUS 2.5 MG/DL (2.3-4.7); POTASSIUM 4.3 MMOL/L (3.6-5.0); SODIUM 136 MMOL/L (135-145); TOTAL PROTEIN 5.8 GM/DL (6.4-8.2); TRIGLYCERIDES 59 MG/DL (<150); VLDL CHOLESTEROL 12 MG/DL (5-40)
--- NOTE | 2019-08-22 04:30 | NUR ---
0420: DR. FOURNIER NOTIFIED OF PT'S HEART RATE SUSTAINING IN THE 30'S. NO NEW ORDERS. 0430: DR. SANCHEZ NOTIFIED OF PT'S TROPONIN LEVEL OF 87.212 AND PT'S HEART RATE SUSTAINING IN THE 30'S. NO NEW ORDERS.
[2019-08-22] MEDS ORDERED: ATROPINE INJ 0.4 MG/ML SDV ONE (04:35)
--- NOTE | 2019-08-22 05:02 | Pulmonary Consultation ---
History of Present Illness History of Present Illness Date Seen by Provider: Aug 22, 2019 Time Seen by Provider: 09:47 Date of Admission Reason for Visit: Acute myocardial infarction History of Present Illness 88yo with hx of CKD presented secondary to worsening SOB. Pt was found to have ST elevation upon ED admission and denies CP. Pt went for urgent cath. Allergies and Home Medications Allergies Coded Allergies: simvastatin (Verified Allergy, Unknown, Takes Atorvastatin at home, 02/03/19) Home Medications Aspirin 81 Mg Tablet.dr, 81 MG PO DAILY, (Reported) Atorvastatin Calcium 40 Mg Tablet, 40 MG PO HS Prescribed by: SANKET SANCHEZ on 08/22/19 08 Cholecalciferol (Vitamin D3) 2,000 Unit Capsule, 2,000 UNIT PO DAILY, (Reported) Clopidogrel Bisulfate 75 Mg Tablet, 75 MG PO DAILY Prescribed by: SANKET SANCHEZ on 08/22/19 08 Enoxaparin Sodium 80 Mg/0.8 Ml Syringe, 80 MG SC Q12H Prescribed by: SANKET SANCHEZ on 08/22/19 0851 Famotidine 20 Mg Tablet, 20 MG PO DAILY, (Reported) Finasteride 5 Mg Tablet, 5 MG PO HS, (Reported) Furosemide 10 Mg/1 Ml Vial, 20 MG IVP DAILY@,17 Prescribed by: SANKET SANCHEZ on 08/22/19 0851 Glycerin 1 Each Supp.rect, 1 SUPP.RECT RC DAILY PRN for CONSTIPATION, (Reported) Lisinopril 20 Mg Tablet, 20 MG PO DAILY Prescribed by: SANKET SANCHEZ on 08/22/19 0851 Methimazole 5 Mg Tablet, 2.5 MG PO HS, (Reported) TAKES 1/2 (5MG) TABLET [place] 3 Polyunsat Fatty Acids 1,000 Mg Cap, 1,000 MG PO BID WITH MEALS Prescribed by: SANKET SANCHEZ on 08/22/19 08 Potassium Chloride 10 Meq Tablet.er, 10 MEQ PO DAILY Prescribed by: NATALIE LANE on 02/07/19 0920 Tramadol HCl 50 Mg Tablet, 50 MG PO QID PRN for PAIN-MODERATE, (Reported) Ubidecarenone/Vit E Acetate 1 Each Capsule, 100 MG PO DAILY, (Reported) Past Aifdrww-Cslmsx-Nhtnmn Hx Past Med/Social Hx: Reviewed Nursing Past Med/Soc Hx Patient Social History Alcohol Use: Occasionally Uses Recreational Drug Use: No Smoking Status: Former Smoker Type Used: Cigarettes Former Smoker, Quit: Nov 30, 1977 2nd Hand Smoke Exposure: No Recent Foreign Travel: No Contact w/Someone Who Travel: No Recent Infectious Disease Expo: No Recent Hopitalizations: No Physical Abuse: No Sexual Abuse: No Mistreated: No Fear: No Immunizations Up To Date Date of Pneumonia Vaccine: Sep 13, 2016 Date of Influenza Vaccine: Jun 13, 2019 Seasonal Allergies Seasonal Allergies: No Past Medical History Surgeries: Yes (LEFT HIP) Respiratory: No Cardiac: Yes Heart Attack, High Cholesterol, Hypertension Neurological: No Genitourinary: No Gastrointestinal: No Musculoskeletal: No Endocrine: No HEENT: Yes Hearing Impairment: Hard of Hearing, Bilateral Hearing Aide Cancer: No Psychosocial: No Integumentary: No Review of Systems Time Seen by Provider: 05:02 Sepsis Event Evaluation Height, Weight, BMI Height: 5'10.00" Weight: 143lbs. 6.0oz. 65.821428xb; 22.00 BMI Method:Stated Exam Exam Vital Signs Date Time Temp Pulse Resp B/P (MAP) Pulse Ox O2 Delivery O2 Flow Rate FiO2 08/22/19 04:00 36 28 122/64 (83) Nasal Cannula 2.00 08/22/19 03:00 40 10 130/73 (92) Nasal Cannula 2.00 08/22/19 02:00 49 29 119/86 (97) 98 Nasal Cannula 2.00 08/22/19 01:00 38 39 130/92 (105) 98 Nasal Cannula 2.00 08/22/19 00:56 42 08/22/19 00:00 40 128/55 (79) 97 Nasal Cannula 2.00 08/22/19 00:00 99 Nasal Cannula 3.00 08/21/19 23:00 45 42 102/97 (99) 96 Nasal Cannula 2.00 08/21/19 22:00 41 6 123/59 (80) 100 Nasal Cannula 2.00 08/21/19 21:00 54 22 134/63 (86) 97 Nasal Cannula 2.00 08/21/19 20:00 43 27 161/83 (109) 99 Nasal Cannula 2.00 08/21/19 20:00 94 Nasal Cannula 2.00 08/21/19 19:45 42 17 145/70 (95) 97 Nasal Cannula 2.00 08/21/19 19:36 37.2 39 16 140/83 (102) 94 Nasal Cannula 2.00 08/21/19 19:30 97 Nasal Cannula 2.00 08/21/19 19:16 46 08/21/19 19:15 44 22 134/72 (92) 100 Nasal Cannula 2.00 08/21/19 17:10 37.7 53 19 140/68 94 Room Air 08/21/19 16:40 37.6 57 24 139/60 (86) 95 Room Air I & O 08/22/19 06:59 Intake Total 125 ml Output Total 375 ml Balance -250 ml Height & Weight Height: 5'10.00" Weight: 143lbs. 6.0oz. 65.338893ry; 22.00 BMI Method:Stated General Appearance: No Apparent Distress, WD/WN HEENT: PERRL/EOMI, Pharynx Normal, Moist Mucous Membranes Neck: Full Range of Motion, Normal Inspection, Supple Respiratory: Chest Non Tender, Lungs Clear, Normal Breath Sounds, No Accessory Muscle Use, No Respiratory Distress Cardiovascular: No Edema, No JVD, No Murmur, Bradycardia Capillary Refill: Less Than 3 Seconds Extremity: Normal Capillary Refill, Normal Range of Motion, Non Tender, No Calf Tenderness Neurologic/Psychiatric: Alert, Oriented x3, No Motor/Sensory Deficits, Normal Mood/Affect Skin: Normal Color, Warm/Dry Results Lab Laboratory Tests 08/21/19 16:40 08/22/19 02:45 Assessment/Plan Assessment/Plan Acute STEMI s/p cath - No interventions secondary to severity -Medical mgmt per cardiology -Pt is DNR Bradycardia - With normal BP and asymptomatic -Montior Severe CAD CHF- currently 25% -Monitor HTN JUAN FOURNIER DO Aug 22, 2019 05:02
[2019-08-22] MEDS ORDERED: POTASSIUM CL 10MEQ/50ML IVPB 50 ML IV SCH (06:00)
[2019-08-22] MEDS ORDERED: KCL 20 MEQ TAB (K-DUR) PO SCH (06:00)
[2019-08-22] MEDS: NS IV 1000 ML 1,000 ML IV SCH (06:00)
[2019-08-22] MEDS ORDERED: MAGNESIUM 1 GM/100 ML IVPB 100 ML IV SCH (06:00)
[2019-08-22] MEDS ORDERED: ZIPRASIDONE 20 MG INJ (GEODON) VIAL IM ONE (06:01)
[2019-08-22] MEDS ORDERED: OMEGA 3 (FISH OIL) 1000 MG CAP PO SCH (07:00)
--- NOTE | 2019-08-22 07:18 | Diagnostic Imaging Report ---
INDICATION: Dyspnea. TECHNIQUE: Single view chest 3:38 AM. CORRELATION STUDY: 08/21/2019 FINDINGS: Elevated right diaphragm with right lung volume loss. The perihilar infiltrates and/or edema are adversely changed from prior study. Some increased density at the right upper lung field as well. Heart size enlarged. Mediastinum is prominent with a tortuous course of the thoracic aorta. IMPRESSION: 1. There appears to be increasing vascular congestion. Additionally, increasing densities at the particularly lung bases and right upper lung field. This may be reflective of atelectasis and/or edema versus infiltrate. Follow-up imaging recommended. Dictated by: Dictated on workstation # [id number]
--- NOTE | 2019-08-22 07:25 | NUR ---
DR SANCHEZ GAVE VERBAL ORDER FOR ATROPINE 0.5MG IVP ONCE. DC IV FLUIDS. DR SANCHEZ SAID TO TREAT ONLY SYMPTOMATIC BRADYCARDIA. WILL CONTINUE TO MONITOR.
[2019-08-22] MEDS ORDERED: ATROPINE INJ 0.4 MG/ML SDV IV ONE (07:30)
--- NOTE | 2019-08-22 07:32 | Cardiology Progress Note ---
Subjective Date Seen by Provider: Aug 22, 2019 Time Seen by Provider: 07:29 Subjective/Events-last exam Patient is lethargic, tired, no chest pain. No significant dyspnea Review of Systems General: No Chills, No Night Sweats; Fatigue, Malaise; No Appetite, No Other HEENT: No Head Aches, No Visual Changes, No Eye Pain, No Ear Pain, No Dysphasia, No Sinus Congestion, No Post Nasal Drip, No Sore Throat, No Other Pulmonary: No Dyspnea, No Cough, No Pleuritic Chest Pain, No Other Cardiovascular: No: Chest Pain, Palpitations, Orthopnea, Paroxysmal Noc. Dyspnea, Edema, Lt Headedness, Other Objective-Cardiology Exam Last Set of Vital Signs Vital Signs 08/21/19 08/22/19 19:36 08:00 Temp 37.2 Pulse 33 Resp 23 B/P (MAP) 131/62 (85) Pulse Ox 100 O2 Delivery Nasal Cannula O2 Flow Rate 2.00 Capillary Refill : Less Than 3 Seconds I&O Intake and Output 08/22/19 00:00 Intake Total 50 ml Output Total 300 ml Balance -250 ml Intake Oral 50 ml Output Urine Total 300 ml Daily Weight Change No General: Alert, Oriented X3, Cooperative, No Acute Distress HEENT: Atraumatic, PERRLA Neck: No JVD Lungs: Normal Air Movement, Other Heart: Normal S1, Normal S2, Other (S3 is present, systolic murmur at the left sternal border, bradycardia) Abdomen: Normal Bowel Sounds, Soft, No Tenderness, No Hepatosplenomegaly, No Masses Extremities: No Clubbing, No Cyanosis, No Edema, Normal Pulses, No Tenderness/Swelling Skin: No Rashes, No Breakdown, No Significant Lesion Neuro: Normal Speech, Strength at 5/5 X4 Ext, Normal Tone, Sensation Intact Psych/Mental Status: Mental Status NL, Mood NL Results Lab Laboratory Tests 08/21/19 16:40 08/22/19 02:45 A/P-Cardiology Admission Diagnosis Subacute myocardial infarction Coronary artery disease Congestive heart failure Hypertension Assessment/Plan Subacute myocardial infarction, inferior wall VA, persistent elevation in troponin, conservative management Sinus node dysfunction, severe bradycardia, and complete heart block, given 0.5 mg of atropine, still bradycardic Coronary artery disease multivessel disease, severe ostial left main, proximal LAD, mid circumflex and total occlusion of the right coronary artery, medical therapy is recommended Congestive heart failure, acute left ventricular systolic dysfunction, ischemic cardiomyopathy, will start diuretics and monitor tolerance and response, cannot tolerate beta blockers at this time due to severe bradycardia Paroxysmal atrial fibrillation by history, continue to monitor Hypertension, cannot tolerate beta blockers Hyperlipidemia, LDL 76. Started on Lipitor 80 mg I will decrease the dose to 40 mg Hyperthyroidism Degenerative joint disease Patient requested DO NOT RESUSCITATE Clinical Quality Measures DVT/VTE Risk/Contraindication: Risk Factor Score Per Nursin RFS Level Per Nursing on Admit: 4+=Very High SANKET SANCHEZ MD Aug 22, 2019 07:32 POS
[2019-08-22] MEDS ORDERED: ENOXAPARIN 80 MG/0.8 ML (LOVENOX) SYR SC SCH (08:00)
--- NOTE | 2019-08-22 08:48 | Short Stay Summary ---
Discharge Summary Hospital Course Was the Problem List Reviewed?: Yes Final Diagnosis: subacute ST elevation myocardial infarctions Hospital Course Date of Admission: Aug 21, 2019 at 19:10 Admission Diagnosis : Family Physician/Provider: No,Local Physician Date of Discharge: 08/22/19 Discharge Diagnosis: [ ]subacute ST elevation myocardial infarction Complete heart block Hypertension Coronary artery disease Hospital Course: [ Subacute myocardial infarction, inferior wall VT, persistent elevation in troponin, conservative management Sinus node dysfunction, severe bradycardia, intermittent escape junctional rhythm, I will give 0.5 mg of atropine and monitor response. Coronary artery disease multivessel disease, severe ostial left main, proximal LAD, mid circumflex and total occlusion of the right coronary artery, medical therapy is recommended Congestive heart failure, acute left ventricular systolic dysfunction, ischemic cardiomyopathy, will start diuretics and monitor tolerance and response, cannot tolerate beta blockers at this time due to severe bradycardia Paroxysmal atrial fibrillation by history, continue to monitor Hypertension, cannot tolerate beta blockers Hyperlipidemia, LDL 76. Started on Lipitor 80 mg I will decrease the dose to 40 mg Hyperthyroidism Degenerative joint disease Patient requested DO NOT RESUSCITATE Discussed the mitral plan with Dr. Martinez, who accepted him, patient will be transferred to [facility], possible left main coronary artery stenting and LAD stenting, possible intra-aortic balloon pump placement] Labs and Pending Lab Test: Laboratory Tests 08/21/19 16:40: White Blood Count 9.4, Red Blood Count 4.04L, Hemoglobin 12.3L, Hematocrit 38L, Mean Corpuscular Volume 93, Mean Corpuscular Hemoglobin 30, Mean Corpuscular Hemoglobin Concent 33, Red Cell Distribution Width 14.8H, Platelet Count 199, Mean Platelet Volume 9.9, Neutrophils (%) (Auto) 82H, Lymphocytes (%) (Auto) 7L, Monocytes (%) (Auto) 11, Eosinophils (%) (Auto) 0, Basophils (%) (Auto) 0, Neutrophils # (Auto) 7.7, Lymphocytes # (Auto) 0.7L, Monocytes # (Auto) 1.0, Eosinophils # (Auto) 0.0, Basophils # (Auto) 0.0, Neutrophils % (Manual) 79, Lymphocytes % (Manual) 12, Monocytes % (Manual) 9, Eosinophils % (Manual) 0, Basophils % (Manual) 0, Band Neutrophils 0, Blood Morphology Comment NORMAL, Sodium Level 135, Potassium Level 4.8, Chloride Level 99, Carbon Dioxide Level 24, Anion Gap 12, Blood Urea Nitrogen 25H, Creatinine 1.17, Estimat Glomerular Filtration Rate 59, BUN/Creatinine Ratio 21, Glucose Level 140H, Calcium Level 9.5, Corrected Calcium 9.6, Total Bilirubin 0.6, Aspartate Amino Transf (AST/SGOT) 387H, Alanine Aminotransferase (ALT/SGPT) 215H, Alkaline Phosphatase 87, Troponin I 70.20*H, Pro-B-Type Natriuretic Peptide 4982.0H, Total Protein 6.7, Albumin 3.9 08/22/19 02:45: White Blood Count 8.3, Red Blood Count 3.71L, Hemoglobin 11.2L, Hematocrit 34L, Mean Corpuscular Volume 91, Mean Corpuscular Hemoglobin 30, Mean Corpuscular Hemoglobin Concent 33, Red Cell Distribution Width 14.9H, Platelet Count 169, Mean Platelet Volume 10.0, Neutrophils (%) (Auto) 77H, Lymphocytes (%) (Auto) 8L , Monocytes (%) (Auto) 16H, Eosinophils (%) (Auto) 0, Basophils (%) (Auto) 0, Neutrophils # (Auto) 6.4, Lymphocytes # (Auto) 0.6L, Monocytes # (Auto) 1.3H, Eosinophils # (Auto) 0.0, Basophils # (Auto) 0.0, Sodium Level 136, Potassium Level 4.3, Chloride Level 104, Carbon Dioxide Level 19L, Anion Gap 13, Blood Urea Nitrogen 24H, Creatinine 1.04, Estimat Glomerular Filtration Rate > 60, BUN/Creatinine Ratio 23, Glucose Level 127H, Calcium Level 8.9, Corrected Calcium 9.3, Total Bilirubin 0.9, Aspartate Amino Transf (AST/SGOT) 261H, Al anine Aminotransferase (ALT/SGPT) 188H, Alkaline Phosphatase 80, Troponin I 87.212*H, Total Protein 5.8L, Albumin 3.5, Phosphorus Level 2.5, Magnesium Level 1.8, Triglycerides Level 59, Cholesterol Level 139, LDL Cholesterol Direct 76, VLDL Cholesterol 12, HDL Cholesterol 53, Thyroid Stimulating Hormone (TSH) 1.08 Microbiology 08/21/19 Influenza Types A,B Antigen (TOD) - Final, Complete Home Meds Active Potassium Chloride 10 Meq Tablet.er 10 Meq PO DAILY 15 Days Reported Glycerin 1 Each Supp.rect 1 Supp.rect RC DAILY PRN Methimazole 5 Mg Tablet 2.5 Mg PO HS TAKES 1/2 (5MG) TABLET Co Q-10 100 mg Softgel (Ubidecarenone/Vit E Acetate) 1 Each Capsule 100 Mg PO DAILY Tramadol HCl 50 Mg Tablet 50 Mg PO QID PRN Finasteride 5 Mg Tablet 5 Mg PO HS Famotidine 20 Mg Tablet 20 Mg PO DAILY Vitamin D-3 (Cholecalciferol (Vitamin D3)) 2,000 Unit Capsule 2,000 Unit PO DAILY Aspir 81 (Aspirin) 81 Mg Tablet.dr 81 Mg PO DAILY Assessment/Pt Instructions patient will be transferred to [facility] for high risk intervention Discharge Physical Examination General Appearance: Alert, Oriented X3, Cooperative HEENT: Atraumatic, PERRLA Respiratory: Clear to Auscultation Cardiovascular: Normal S1, Normal S2, Other (bradycardic, systolic murmur) Abdominal: Normal Bowel Sounds, Soft Extremities: No Clubbing, No Cyanosis Skin: No Rashes, No Breakdown Neuro: Normal Speech, Strength at 5/5 X4 Ext Psych/Mental Status: Mental Status NL, Mood NL Allergies: Coded Allergies: simvastatin (Verified Allergy, Unknown, Takes Atorvastatin at home, 02/03/19) Discharge Summary Date of Admission Aug 21, 2019 at 19:10 Date of Discharge Clinical Quality Measures DVT/VTE Risk/Contraindication: Risk Factor Score Per Nursin RFS Level Per Nursing on Admit: 4+=Very High SANKET SANCHEZ MD Aug 22, 2019 08:48 POS
[2019-08-22] MEDS ORDERED: ENOX80DI7 SC (08:51)
[2019-08-22] MEDS ORDERED: CLOP75TA28 PO (08:51)
[2019-08-22] MEDS ORDERED: LISI-552 PO (08:51)
[2019-08-22] MEDS ORDERED: FURO10VI IVP (08:51)
[2019-08-22] MEDS ORDERED: OMG1KC PO (08:51)
[2019-08-22] MEDS ORDERED: ATOR40TA PO (08:51)
[2019-08-22] MEDS ORDERED: CLOPIDOGREL 75 MG (PLAVIX) TABLET PO SCH (09:00)
[2019-08-22] MEDS ORDERED: lisINopril 20 MG (PRINIVIL) TABLET PO SCH (09:00)
[2019-08-22] MEDS ORDERED: PANTOPRAZOLE 40 MG (PROTONIX) TAB PO SCH (09:00)
[2019-08-22] MEDS ORDERED: ASPIRIN E.C. 81 MG (ECOTRIN) TAB PO SCH (09:00)
[2019-08-22] MEDS ORDERED: FUROSEMIDE 40 MG/4 ML INJ (LASIX) IVP SCH ×2 (09:00→17:00)
--- NOTE | 2019-08-22 10:00 | NUR ---
THIS NURSE CALLED REPORT TO REBEL ELLIOTT AT [facility].
[2019-08-22] MEDS ORDERED: TAMSULOSIN 0.4 MG (FLOMAX) CAP PO SCH (18:00)
--- OUTSIDE RECORDS SUMMARY | 2019-09-16 07:51 | XMS REPORT ---
Author Author Tian BACH Organization [facility] Address [address] [place] [address] Care Team Providers Care Utility Hand Name Role Phone HORACIO BACH Unavailable PROBLEMS Type Condition ICD9-CM Code [id number] Code Onset Dates Condition S tatus SNOMED Code Problem Incisional pain R20.8 Active 8091 0005 ALLERGIES No Known Allergies ENCOUNTERS Encounter Location Date Diagnosis [facility] [address] [facility] [place] [address] Mar, [facility] [address] [facility] [place] [address] Mar, [facility] [address] [facility] [place] [address] Mar, [facility] [address] [facility] [place] [address] Mar, Dressing change Z48.00 [facility] [address] [facility] [place] [address] 17 Mar, 2019 [facility] [address] [facility] [place] [address] 16 Mar, 2019 Dressing change Z48.00 [facility] [address] [facility] [place] [address] 15 Mar, 2019 Skin tear of left forearm without compli cation, subsequent encounter S51.812D [facility] [address] [facility] [place] [address] 14 Mar, 2019 Dressing change Z48.00 [facility] [address] [facility] [place] [address] 13 Mar, 2019 Dressing change Z48.00 [facility] [address] [place] [address] Mar, [facility] [address] [place] [address] Mar, [facility] [address] [place] [address] Mar, Skin tear of left forearm without compli cation, initial encounter S51.812A [facility] [address] [place] [address] Dec, [facility] [address] [place] [address] Nov, [facility] [address] [place] [address] Nov, [facility] [address] [place] [address] Nov, [facility] [address] [place] [address] Nov, [facility] [address] [place] [address] Nov, [facility] [address] [place] [address] Nov, Incisional pain R20.8 [facility] [address] [place] [address] Nov, IMMUNIZATIONS No Known Immunizations SOCIAL HISTORY Never Assessed REASON FOR VISIT had spot removed and its draining out milky color and little pink, Dressing desi Garcia (R) PLAN OF CARE VITAL SIGNS Height 70 in 2018-12-05 Weight 144.4 lbs 2018-12-05 Temperature 97.7 degrees Fahrenheit 2018-12-05 BMI 20.72 kg/m2 2018-12-05 Blood pressure systolic 160 mmHg 2018-12-05 Blood pressure diastolic 80 mmHg 2018-12-05 MEDICATIONS Medication Instructions Dosage Frequency Start Date End Date Duration S tatus Famotidine 20 MG Orally Once a day 1 tablet at bedtime 24h 30 day(s) Active Vitamin D 2000 UNIT Orally Once a day 1 tablet 24h 3 0 day(s) Active Tramadol HCl 50 MG as directed A ctive Cephalexin 500 MG Orally every 12 hrs 1 capsule 12h 24 Nov, 2018 10 day(s) Active Lisinopril 40 MG Orally Once a day 1 tablet 24h 30 d ay(s) Active OxyCODONE ER 13.5 MG Orally every 12 hrs 1 capsule with food 12h Active Tamsulosin HCl 0.4 MG Orally Once a day 1 capsule 24h 30 day(s) Active Trazodone HCl 100 MG Orally Once a day 1 tablet at bedtime 24h 30 day(s) Active Atorvastatin Calcium 10 MG Orally Once a day 1 tablet 24h 30 day(s) Active Sertraline HCl 100 MG Orally Once a day 1 tablet 24h 30 day(s) Active Aspir-81 81 MG Orally Once a day 1 tablet 24h 30 day (s) Active Finasteride 5 MG Orally Once a day 1 tablet 24h 30 d ay(s) Active RESULTS No Results PROCEDURES No Known procedures INSTRUCTIONS MEDICATIONS ADMINISTERED No Known Medications MEDICAL (GENERAL) HISTORY Type Description Date Medical History hypertension Surgical History right shoulder surgery Surgical History cyst removal Hospitalization History shortness of breath and chest pain J une 2019
--- OUTSIDE RECORDS SUMMARY | 2019-09-16 07:51 | XMS REPORT ---
Author Author Tian KNOWLES Organization [facility] Address [address] [place] [address] Care Team Providers Care Crosscutter Rolled Glass Name Role Phone BENSON, DIMITRI Unavailable PROBLEMS Type Condition ICD9-CM Code [id number] Code Onset Dates Condition S tatus SNOMED Code Problem Incisional pain R20.8 Active 8091 0005 ALLERGIES No Information ENCOUNTERS Encounter Location Date Diagnosis [facility] [address] [place] [facility] [place] [address] Mar, [facility] [address] [place] [facility] [place] [place] [address] Mar, [facility] [address] [place] [facility] [place] [place] [address] Mar, [facility] [address] [place] [facility] [place] [place] [address] Mar, Dressing change Z48.00 [facility] [address] [place] [facility] [place] [place] [address] 17 Mar, 2019 [facility] [address] [place] [facility] [place] [address] 16 Mar, 2019 Dressing change Z48.00 [facility] [address] [place] [facility] [place] [address] 15 Mar, 2019 Skin tear of left forearm without compli cation, subsequent encounter S51.812D [facility] [address] [place] [facility] [place] [place] [address] 14 Mar, 2019 Dressing change Z48.00 [facility] [address] [place] [facility] [place] [address] 13 Mar, 2019 Dressing change Z48.00 [facility] [address] [place] [facility] [place] [place] [address] Mar, [facility] [address] [place] [address] Mar, [facility] [address] [place] [address] Mar, Skin tear of left forearm without compli cation, initial encounter S51.812A [facility] [address] [place] [address] Dec, [facility] [address] [place] [address] Nov, [facility] [address] [place] [address] Nov, [facility] [address] [place] [address] Nov, [facility] [address] [place] [address] Nov, [facility] [address] [place] [address] Nov, [facility] [address] [place] [address] Nov, Incisional pain R20.8 [facility] [address] [place] [address] Nov, IMMUNIZATIONS No Known Immunizations SOCIAL HISTORY Never Assessed REASON FOR VISIT right shoulder post surgery bandage keshav ritter PLAN OF CARE VITAL SIGNS MEDICATIONS Unknown Medications RESULTS No Results PROCEDURES No Known procedures INSTRUCTIONS MEDICATIONS ADMINISTERED No Known Medications MEDICAL (GENERAL) HISTORY Type Description Date Medical History hypertension Surgical History right shoulder surgery Surgical History cyst removal Hospitalization History shortness of breath and chest pain J une 2019
--- OUTSIDE RECORDS SUMMARY | 2019-09-16 07:52 | XMS REPORT | Continuity of Care Document ---
Author Organization Unknown Address Unknown Phone Unavailable Allergies Active Description Code Type Severity Reaction Onset Reported/Identified Relationship to Patient Clinical Status Yes simvastatin [id number] Drug Aller gy Unknown N/A 02/03/2019 Yes simvastatin [id number] Drug Aller gy Unknown Takes Atorvasta 02/03/2019 Medications There is no data. Problems Date Dx Coded Attending Type Code Diagnosis Diagnosed By 11/28/2018 CHELO CRUZ MD, Ot Z01.818 ENCOUNTER FOR OTHER PREPROCEDURAL EXAMIN 11/30/2018 CHELO CRUZ MD, Ot Z01.818 ENCOUNTER FOR OTHER PREPROCEDURAL EXAMIN 11/30/2018 CHELO CRUZ MD Ot E78.5 HYPERLIPIDEMIA, UNSPECIFIED 11/30/2018 CHELO CRUZ MD Ot I1 0 ESSENTIAL (PRIMARY) HYPERTENSION 11/30/2018 CHELO CRUZ MD Ot M19.011 PRIMARY OSTEOARTHRITIS, RIGHT SHOULDER 11/30/2018 CHELO CRUZ MD Ot M67.411 GANGLION, RIGHT SHOULDER 11/30/2018 CHELO CRUZ MD Ot Z11.2 ENCOUNTER FOR SCREENING FOR OTHER BACTER 11/30/2018 CHELO CRUZ MD Ot Z79.899 OTHER DIRECTOR SEARCH MARKETING STRATEGIES (CURRENT) DRUG THERAPY 11/30/2018 CHELO CRUZ MD Ot Z87.891 PERSONAL HISTORY OF NICOTINE DEPENDENCE 12/01/2018 CHELO CRUZ MD, Ot E78.5 HYPERLIPIDEMIA, UNSPECIFIED 12/01/2018 CHELO CRUZ MD Ot I1 0 ESSENTIAL (PRIMARY) HYPERTENSION 12/01/2018 CHELO CRUZ MD Ot M19.011 PRIMARY OSTEOARTHRITIS, RIGHT SHOULDER 12/01/2018 CHELO CRUZ MD Ot M67.411 GANGLION, RIGHT SHOULDER 12/01/2018 CHELO CRUZ MD Ot Z11.2 ENCOUNTER FOR SCREENING FOR OTHER BACTER 12/01/2018 CHELO CRUZ MD Ot Z79.899 OTHER ASSISTED (CURRENT) DRUG THERAPY 12/01/2018 CHELO CRUZ MD Ot Z87.891 PERSONAL HISTORY OF NICOTINE DEPENDENCE 12/03/2018 CHELO CRUZ MD Ot E78.5 HYPERLIPIDEMIA, UNSPECIFIED 12/03/2018 CHELO CRUZ MD Ot I1 0 ESSENTIAL (PRIMARY) HYPERTENSION 12/03/2018 CHELO CRUZ MD Ot M19.011 PRIMARY OSTEOARTHRITIS, RIGHT SHOULDER 12/03/2018 CHELO CRUZ MD Ot M67.411 GANGLION, RIGHT SHOULDER 12/03/2018 CHELO CRUZ MD Ot Z11.2 ENCOUNTER FOR SCREENING FOR OTHER BACTER 12/03/2018 CHELO CRUZ MD Ot Z79.899 OTHER DIRECTOR SEARCH MARKETING STRATEGIES (CURRENT) DRUG THERAPY 12/03/2018 CHELO CRUZ MD Ot Z87.891 PERSONAL HISTORY OF NICOTINE DEPENDENCE 12/07/2018 CHELO CRUZ MD Ot E78.5 HYPERLIPIDEMIA, UNSPECIFIED 12/07/2018 CHELO CRUZ MD Ot I1 0 ESSENTIAL (PRIMARY) HYPERTENSION 12/07/2018 CHELO CRUZ MD Ot M19.011 PRIMARY OSTEOARTHRITIS, RIGHT SHOULDER 12/07/2018 CHELO CRUZ MD Ot M67.411 GANGLION, RIGHT SHOULDER 12/07/2018 CHELO CRUZ MD Ot Z11.2 ENCOUNTER FOR SCREENING FOR OTHER BACTER 12/07/2018 CHELO CRUZ MD Ot Z79.899 OTHER ASSISTED (CURRENT) DRUG THERAPY 12/07/2018 CHELO CRUZ MD Ot Z87.891 PERSONAL HISTORY OF NICOTINE DEPENDENCE 02/07/[address] MD Ot E05. 90 THYROTOXICOSIS, UNSP WITHOUT THYROTOXIC 02/07/[address] MD Ot E78. 00 PURE HYPERCHOLESTEROLEMIA, UNSPECIFIED 02/07/[address] MD Ot E87. 1 HYPO-OSMOLALITY AND HYPONATREMIA 02/07/[address] MD Ot H91. 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 0 HYPERTENSIVE HEART DISEASE WITH HEART FA 02/07/[address] MD Ot I48. 91 UNSPECIFIED ATRIAL FIBRILLATION 02/07/[address] MD Ot I50. 31 ACUTE DIASTOLIC (CONGESTIVE) HEART FAILU 02/07/[address] MD Ot R30. 0 DYSURIA 02/07/[address] MD Ot R35. 0 FREQUENCY OF MICTURITION 02/07/[address] MD Ot Z66 DO NOT RESUSCITATE 02/07/[address] MD Ot Z91. 81 HISTORY OF FALLING 02/07/[address] MD Ot Z97. 4 PRESENCE OF EXTERNAL HEARING-AID 08/22/2019 SANKET SANCHEZ MD Ot E05. 90 THYROTOXICOSIS, UNSP WITHOUT THYROTOXIC 08/22/2019 SANKET SANCHEZ MD Ot E78. 5 HYPERLIPIDEMIA, UNSPECIFIED 08/22/2019 SANKET SANCHEZ MD Ot H91. 93 UNSPECIFIED HEARING LOSS, BILATERAL 08/22/2019 SANKET SANCHEZ MD Ot I13. 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 0 PAROXYSMAL ATRIAL FIBRILLATION 08/22/2019 SANKET SANCHEZ MD Ot I50. 21 ACUTE SYSTOLIC (CONGESTIVE) HEART FAILUR 08/22/2019 SANKET SANCHEZ MD Ot I70. 0 ATHEROSCLEROSIS OF [place] 08/22/2019 SANKET SANCHEZ MD Ot N18. 9 CHRONIC KIDNEY DISEASE, UNSPECIFIED 08/22/2019 ASNKET SANCHEZ MD Ot Z66 DO NOT RESUSCITATE 08/22/2019 SANKET SANCHEZ MD, Ot Z97. 4 PRESENCE OF EXTERNAL HEARING-AID Procedures Code Description Performed By Per formed On [id number] IN SPECTION OF GREAT VESSEL, PERCUTANEOUS 08/21/2019 [id number] ME ASURE OF CARDIAC SAMPL PRESSURE, L H 08/21/2019 [id number] FL UOROSCOPY OF MULT COR ART USING L OSM 08/21/2019 [id number] FL UOROSCOPY OF LEFT HEART USING LOW OSMO 08/21/2019 [id number] FL UOROSCOPY OF THORACIC [place] USING LOW 08/21/2019 Results Test Result Range Methicillin resistant Staphylococcus aur eus (MRSA) screening culture - 11/30/18 07:00 Methicillin resistant Staphylococcus aureus (MRSA) scr eening culture NEG NRG Complete blood count (CBC) with automate d white blood cell (WBC) differential - 02/03/19 09:28 Blood leukocytes automated count (number/volume) 6.8 10*3/uL 4.3-11.0 Blood erythrocytes automated count (number/volume) 4.55 10*6/uL 4.35-5.85 Venous blood hemoglobin measurement (mass/volume) 13.8 g/dL 13.3-17.7 Blood hematocrit (volume fraction) 40 % 40-54 Automated erythrocyte mean corpuscular volume 88 [ foz_us] 80-99 Automated erythrocyte mean corpuscular h emoglobin (mass per erythrocyte) 30 pg 25-34 Automated erythrocyte mean corpuscular h emoglobin concentration measurement (mass/volume) 34 g/dL 32-36 Automated erythrocyte distribution width ratio 13. 8 % 10.0- 14.5 Automated blood platelet count (count/volume) 208 10*3/uL 130-400 Automated blood platelet mean volume measurement 9.7 [foz_us] 7.4-10.4 Automated blood neutrophils/100 leukocytes 75 % 42-75 Automated blood lymphocytes/100 leukocytes 16 % 12-44 Blood monocytes/100 leukocytes 9 % 0-12 Automated blood eosinophils/100 leukocytes 0 % 0-10 Automated blood basophils/100 leukocytes 0 % 0-10 Blood neutrophils automated count (number/volume) 5.1 10*3 1.8-7.8 Blood lymphocytes automated count (number/volume) 1.1 10*3 1.0-4.0 Blood monocytes automated count (number/volume) 0. 6 10*3 0.0-1.0 Automated eosinophil count 0.0 10*3/uL 0 .0-0.3 Automated blood basophil count (count/volume) 0.0 10*3/uL 0.0-0.1 Whole blood basic metabolic panel - 01/12 12/30 09:28 Serum or plasma sodium measurement (moles/volume) 128 mmol/L 135-145 Serum or plasma potassium measurement (moles/volume) 3.5 mmol/L 3.6-5.0 Serum or plasma chloride measurement (moles/volume) 84 mmol/L 98-107 Carbon dioxide 29 mmol/L 21-32 Serum or plasma anion gap determination (moles/volume) 15 mmol/L 5-14 Serum or plasma urea nitrogen measurement (mass/volume ) 16 mg/dL 7-18 Serum or plasma creatinine measurement (mass/volume) 1.10 mg/dL 0.60-1.30 Serum or plasma urea nitrogen/creatinine mass ratio 15 NRG Serum or plasma creatinine measurement w ith calculation of estimated glomerular filtration rate > NRG Serum or plasma glucose measurement (mass/volume) 137 mg/dL 70-105 Serum or plasma calcium measurement (mass/volume) 9.5 mg/dL 8.5-10.1 TROPONIN T - 02/03/19 09:28 TROPONIN T 39 % <=15 PROBNP FS - 02/03/19 09:28 PROBNP FS 1251.0 pg/mL <75.0 THYROID STIMULATING HORMONE - 02/03/19 0 9:28 THYROID STIMULATING HORMONE 0.76 u[iU]/mL 0.35-4.94 Complete urinalysis with reflex to cultu re - 02/03/19 10:45 Urine color determination YELLOW NRG Urine clarity determination CLEAR NR G Urine pH measurement by test strip 7.5 5-9 Specific gravity of urine by test strip 1.010 1.016-1.022 Urine protein assay by test strip, semi-quantitative 1+ NEGATIVE Urine glucose detection by automated test strip NE GATIVE NEGATIVE Erythrocytes detection in urine sediment by light micr oscopy NEGATIVE NEGATIVE Urine ketones detection by automated test strip NE GATIVE NEGATIVE Urine nitrite detection by test strip NEGATIVE NEGATIVE Urine total bilirubin detection by test strip NEGA TIVE NEGATIVE Urine urobilinogen measurement by automated test strip (mass/volume) 0.2 mg/dL NORMAL Urine leukocyte esterase detection by dipstick NEG ATIVE NEGATIVE Automated urine sediment erythrocyte cou nt by microscopy (number/high power field) NONE NRG Automated urine sediment leukocyte count by microscopy (number/high power field) NONE NRG Bacteria detection in urine sediment by light microsco py NONE NRG Squamous epithelial cells detection in u rine sediment by light microscopy 0-2 NRG Crystals detection in urine sediment by light microsco py NONE NRG Casts detection in urine sediment by light microscopy NONE NRG Mucus detection in urine sediment by light microscopy NEGATIVE NRG Complete urinalysis with reflex to culture NO NRG Serum or plasma troponin i.cardiac measu rement (mass/volume) - 02/03/19 16:57 Serum or plasma troponin i.cardiac measurement (mass/v olume) 0.034 ng/mL <0.028 Whole blood basic metabolic panel - 01/12 01/29 04:45 Serum or plasma sodium measurement (moles/volume) 131 mmol/L 135-145 Serum or plasma potassium measurement (moles/volume) 3.4 mmol/L 3.6-5.0 Serum or plasma chloride measurement (moles/volume) 88 mmol/L 98-107 Carbon dioxide 28 mmol/L 21-32 Serum or plasma anion gap determination (moles/volume) 15 mmol/L 5-14 Serum or plasma urea nitrogen measurement (mass/volume ) 24 mg/dL 7-18 Serum or plasma creatinine measurement (mass/volume) 1.82 mg/dL 0.60-1.30 Serum or plasma urea nitrogen/creatinine mass ratio 13 NRG Serum or plasma creatinine measurement w ith calculation of estimated glomerular filtration rate 35 NRG Serum or plasma glucose measurement (mass/volume) 110 mg/dL 70-105 Serum or plasma calcium measurement (mass/volume) 10.1 mg/dL 8.5-10.1 Whole blood basic metabolic panel - 01/12 03/01 13:37 Serum or plasma sodium measurement (moles/volume) 125 mmol/L 135-145 Serum or plasma potassium measurement (moles/volume) 2.8 mmol/L 3.6-5.0 Serum or plasma chloride measurement (moles/volume) 86 mmol/L 98-107 Carbon dioxide 26 mmol/L -32 Serum or plasma anion gap determination (moles/volume) 13 mmol/L 5-14 Serum or plasma urea nitrogen measurement (mass/volume ) 31 mg/dL 7-18 Serum or plasma creatinine measurement (mass/volume) 1.60 mg/dL 0.60-1.30 Serum or plasma urea nitrogen/creatinine mass ratio 19 NRG Serum or plasma creatinine measurement w ith calculation of estimated glomerular filtration rate 41 NRG Serum or plasma glucose measurement (mass/volume) 130 mg/dL 70-105 Serum or plasma calcium measurement (mass/volume) 9.9 mg/dL 8.5-10.1 Whole blood basic metabolic panel - 01/12 03/31 04:22 Serum or plasma sodium measurement (moles/volume) 127 mmol/L 135-145 Serum or plasma potassium measurement (moles/volume) 2.8 mmol/L 3.6-5.0 Serum or plasma chloride measurement (moles/volume) 89 mmol/L 98-107 Carbon dioxide 24 mmol/L 21-32 Serum or plasma anion gap determination (moles/volume) 14 mmol/L 5-14 Serum or plasma urea nitrogen measurement (mass/volume ) 37 mg/dL 7-18 Serum or plasma creatinine measurement (mass/volume) 1.32 mg/dL 0.60-1.30 Serum or plasma urea nitrogen/creatinine mass ratio 28 NRG Serum or plasma creatinine measurement w ith calculation of estimated glomerular filtration rate 51 NRG Serum or plasma glucose measurement (mass/volume) 108 mg/dL 70-105 Serum or plasma calcium measurement (mass/volume) 9.3 mg/dL 8.5-10.1 Magnesium - 02/06/19 04:22 Magnesium 1.4 mg/dL 1.8-2.4 Whole blood basic metabolic panel - 01/12 05/01 08:10 Serum or plasma sodium measurement (moles/volume) 127 mmol/L 135-145 Serum or plasma potassium measurement (moles/volume) 3.0 mmol/L 3.6-5.0 Serum or plasma chloride measurement (moles/volume) 89 mmol/L 98-107 Carbon dioxide 28 mmol/L 21-32 Serum or plasma anion gap determination (moles/volume) 10 mmol/L 5-14 Serum or plasma urea nitrogen measurement (mass/volume ) 38 mg/dL 7-18 Serum or plasma creatinine measurement (mass/volume) 1.48 mg/dL 0.60-1.30 Serum or plasma urea nitrogen/creatinine mass ratio 26 NRG Serum or plasma creatinine measurement w ith calculation of estimated glomerular filtration rate 45 NRG Serum or plasma glucose measurement (mass/volume) 165 mg/dL 70-105 Serum or plasma calcium measurement (mass/volume) 9.3 mg/dL 8.5-10.1 Complete blood count (CBC) with automate d white blood cell (WBC) differential - 08/21/19 16:40 Blood leukocytes automated count (number/volume) 9.4 10*3/uL 4.3-11.0 Blood erythrocytes automated count (number/volume) 4.04 10*6/uL 4.35-5.85 Venous blood hemoglobin measurement (mass/volume) 12.3 g/dL 13.3-17.7 Blood hematocrit (volume fraction) 38 % 40-54 Automated erythrocyte mean corpuscular volume 93 [ foz_us] 80-99 Automated erythrocyte mean corpuscular h emoglobin (mass per erythrocyte) 30 pg 25-34 Automated erythrocyte mean corpuscular h emoglobin concentration measurement (mass/volume) 33 g/dL 32-36 Automated erythrocyte distribution width ratio 14. 8 % 10.0- 14.5 Automated blood platelet count (count/volume) 199 10*3/uL 130-400 Automated blood platelet mean volume measurement 9.9 [foz_us] 7.4-10.4 Automated blood neutrophils/100 leukocytes 82 % 42-75 Automated blood lymphocytes/100 leukocytes 7 % 12-44 Blood monocytes/100 leukocytes 11 % 0-12 Automated blood eosinophils/100 leukocytes 0 % 0-10 Automated blood basophils/100 leukocytes 0 % 0-10 Blood neutrophils automated count (number/volume) 7.7 10*3 1.8-7.8 Blood lymphocytes automated count (number/volume) 0.7 10*3 1.0-4.0 Blood monocytes automated count (number/volume) 1. 0 10*3 0.0-1.0 Automated eosinophil count 0.0 10*3/uL 0 .0-0.3 Automated blood basophil count (count/volume) 0.0 10*3/uL 0.0-0.1 Manual absolute plasma cell count - 06/01 16:40 Blood monocytes/100 leukocytes 9 % NRG Manual blood segmented neutrophils/100 leukocytes 79 % NRG Blood band neutrophils/100 leukocytes 0 % NRG Manual blood lymphocytes/100 leukocytes 12 % NRG Manual eosinophils/100 leukocytes in nose 0 % NRG Manual blood basophils/100 leukocytes 0 % NRG Blood erythrocyte morphology finding identification [facility] Comprehensive metabolic panel - 08/21/19 16:40 Serum or plasma sodium measurement (moles/volume) 135 mmol/L 135-145 Serum or plasma potassium measurement (moles/volume) 4.8 mmol/L 3.6-5.0 Serum or plasma chloride measurement (moles/volume) 99 mmol/L 98-107 Carbon dioxide 24 mmol/L 21-32 Serum or plasma anion gap determination (moles/volume) 12 mmol/L 5-14 Serum or plasma urea nitrogen measurement (mass/volume ) 25 mg/dL 7-18 Serum or plasma creatinine measurement (mass/volume) 1.17 mg/dL 0.60-1.30 Serum or plasma urea nitrogen/creatinine mass ratio 21 NRG Serum or plasma creatinine measurement w ith calculation of estimated glomerular filtration rate 59 NRG Serum or plasma glucose measurement (mass/volume) 140 mg/dL 70-105 Serum or plasma calcium measurement (mass/volume) 9.5 mg/dL 8.5-10.1 Serum or plasma total bilirubin measurement (mass/volu me) 0.6 mg/dL 0.1-1.0 Serum or plasma alkaline phosphatase shani surement (enzymatic activity/volume) 87 U/L 40-136 Serum or plasma aspartate aminotransfera se measurement (enzymatic activity/volume) 387 U/L 5-34 Serum or plasma alanine aminotransferase measurement (enzymatic activity/volume) 215 U/L 0-55 Serum or plasma protein measurement (mass/volume) 6.7 g/dL 6.4-8.2 Serum or plasma albumin measurement (mass/volume) 3.9 g/dL 3.2-4.5 CALCIUM CORRECTED 9.6 mg/dL 8.5-10.1 TROPONIN I FS - 08/21/19 16:40 TROPONIN I FS 70.20 ng/mL <0.30 PROBNP FS - 08/21/19 16:40 PROBNP FS 4982.0 pg/mL <75.0 Influenza virus A and B antigen detectio n - 08/21/19 16:45 FLU RESULT NEGATIVE FOR INFLUENZA A AND B ANTIGENS BY IA NRG Methicillin resistant Staphylococcus aur eus (MRSA) screening culture - 08/21/19 21:46 Methicillin resistant Staphylococcus aureus (MRSA) scr eening culture NEG NR Complete blood count (CBC) with automate d white blood cell (WBC) differential - 08/22/19 02:45 Blood leukocytes automated count (number/volume) 8.3 10*3/uL 4.3-11.0 Blood erythrocytes automated count (number/volume) 3.71 10*6/uL 4.35-5.85 Venous blood hemoglobin measurement (mass/volume) 11.2 g/dL 13.3-17.7 Blood hematocrit (volume fraction) 34 % 40-54 Automated erythrocyte mean corpuscular volume 91 [ foz_us] 80-99 Automated erythrocyte mean corpuscular h emoglobin (mass per erythrocyte) 30 pg 25-34 Automated erythrocyte mean corpuscular h emoglobin concentration measurement (mass/volume) 33 g/dL 32-36 Automated erythrocyte distribution width ratio 14. 9 % 10.0- 14.5 Automated blood platelet count (count/volume) 169 10*3/uL 130-400 Automated blood platelet mean volume measurement 10.0 [foz_us] 7.4-10.4 Automated blood neutrophils/100 leukocytes 77 % 42-75 Automated blood lymphocytes/100 leukocytes 8 % 12-44 Blood monocytes/100 leukocytes 16 % 0-12 Automated blood eosinophils/100 leukocytes 0 % 0-10 Automated blood basophils/100 leukocytes 0 % 0-10 Blood neutrophils automated count (number/volume) 6.4 10*3 1.8-7.8 Blood lymphocytes automated count (number/volume) 0.6 10*3 1.0-4.0 Blood monocytes automated count (number/volume) 1. 3 10*3 0.0-1.0 Automated eosinophil count 0.0 10*3/uL 0 .0-0.3 Automated blood basophil count (count/volume) 0.0 10*3/uL 0.0-0.1 Comprehensive metabolic panel - 08/22/19 02:45 Serum or plasma sodium measurement (moles/volume) 136 mmol/L 135-145 Serum or plasma potassium measurement (moles/volume) 4.3 mmol/L 3.6-5.0 Serum or plasma chloride measurement (moles/volume) 104 mmol/L 98-107 Carbon dioxide 19 mmol/L 21-32 Serum or plasma anion gap determination (moles/volume) 13 mmol/L 5-14 Serum or plasma urea nitrogen measurement (mass/volume ) 24 mg/dL 7-18 Serum or plasma creatinine measurement (mass/volume) 1.04 mg/dL 0.60-1.30 Serum or plasma urea nitrogen/creatinine mass ratio 23 NRG Serum or plasma creatinine measurement w ith calculation of estimated glomerular filtration rate > NRG Serum or plasma glucose measurement (mass/volume) 127 mg/dL 70-105 Serum or plasma calcium measurement (mass/volume) 8.9 mg/dL 8.5-10.1 Serum or plasma total bilirubin measurement (mass/volu me) 0.9 mg/dL 0.1-1.0 Serum or plasma alkaline phosphatase shani surement (enzymatic activity/volume) 80 U/L 40-136 Serum or plasma aspartate aminotransfera se measurement (enzymatic activity/volume) 261 U/L 5-34 Serum or plasma alanine aminotransferase measurement (enzymatic activity/volume) 188 U/L 0-55 Serum or plasma protein measurement (mass/volume) 5.8 g/dL 6.4-8.2 Serum or plasma albumin measurement (mass/volume) 3.5 g/dL 3.2-4.5 CALCIUM CORRECTED 9.3 mg/dL 8.5-10.1 Serum or plasma phosphate measurement (m ass/volume) - 08/22/19 02:45 Serum or plasma phosphate measurement (mass/volume) 2.5 mg/dL 2.3-4.7 Magnesium - 08/22/19 02:45 Magnesium 1.8 mg/dL 1.6-2.4 Serum or plasma troponin i.cardiac measu rement (mass/volume) - 08/22/19 02:45 Serum or plasma troponin i.cardiac measurement (mass/v olume) 87.212 ng/mL <0.028 Lipid 1996 panel - 08/22/19 02:45 Serum or plasma triglyceride measurement (mass/volume) 59 mg/dL <150 Serum or plasma cholesterol measurement (mass/volume) 139 mg/dL < 200 Serum or plasma cholesterol in HDL measurement (mass/v olume) 53 mg/dL 40-60 Cholesterol in LDL [mass/volume] in serum or plasma by direct assay 76 mg/dL 1-129 Serum or plasma cholesterol in VLDL measurement (mass/ volume) 12 mg/dL 5-40 THYROID STIMULATING HORMONE - 08/22/19 0 2:45 THYROID STIMULATING HORMONE 1.08 u[iU]/mL 0.35-4.94 Encounters ACCT No. Visit Date/Time Discharge Status Pt. Type Provider Facility Loc./Unit Complaint [id number] 07/26/2019 09:10:00 07/26/2019 23:59: 00 DIS Outpatient JAYCE SILVA [id number] 07/26/2019 08:23:00 07/26/2019 23:59: 00 DIS Outpatient JAYCE SILVA [id number] 04/04/2019 08:00:00 04/04/2019 23:59: 59 [facility] Outpatient MISAEL MAHER LAC [facility] [id number] 08/21/2019 19:10: 11:11:00 DIS Inpatient DANIEL PLATA, SANKET Lockwood [facility] ICU AMI [id number] 02/03/2019 12:23:00 12:20:00 DIS Inpatient DOMINGO PLATA, NATALIE Rodgers [facility] [address]TH [place] ATRIAL FIBRIL LATION [id number] 11/30/2018 07:18:00 14:35:00 DIS Outpatient ANTHONY PLATA, CHELO Castro [facility] RIGHT SHOULDER DEGENER ATIVE JOINT DISEASE [id number] 11/25/2018 05:35:00 23:59:59 CLS Outpatient CHELO CRUZ MD [facility] PREOP RIGHT SHOULDER DEGENER ATIVE JOINT DISEASE
--- OUTSIDE RECORDS SUMMARY | 2019-09-16 10:08 | XMS REPORT | Continuity of Care Document ---
Author Organization Unknown Address Unknown Phone Unavailable Allergies Active Description Code Type Severity Reaction Onset Reported/Identified Relationship to Patient Clinical Status Yes simvastatin [id number] Drug Aller gy Unknown N/A 02/03/2019 Yes simvastatin [id number] Drug Aller gy Unknown Takes Atorvasta 02/03/2019 Medications There is no data. Problems Date Dx Coded Attending Type Code Diagnosis Diagnosed By 11/28/2018 CHELO CRUZ MD, Ot Z01.818 ENCOUNTER FOR OTHER PREPROCEDURAL EXAMIN 11/30/2018 CHELO CRUZ MD, Ot Z01.818 ENCOUNTER FOR OTHER PREPROCEDURAL EXAMIN 11/30/2018 HCELO CRUZ MD Ot E78.5 HYPERLIPIDEMIA, UNSPECIFIED 11/30/2018 CHELO CRUZ MD Ot I1 0 ESSENTIAL (PRIMARY) HYPERTENSION 11/30/2018 CHELO CRUZ MD Ot M19.011 PRIMARY OSTEOARTHRITIS, RIGHT SHOULDER 11/30/2018 CHELO CRUZ MD Ot M67.411 GANGLION, RIGHT SHOULDER 11/30/2018 CHELO CRUZ MD Ot Z11.2 ENCOUNTER FOR SCREENING FOR OTHER BACTER 11/30/2018 CHELO CRUZ MD Ot Z79.899 OTHER GAME WARDEN (CURRENT) DRUG THERAPY 11/30/2018 CHELO CRUZ MD [...] 12/01/2018 CHELO CRUZ MD Ot Z79.899 OTHER [facility] (CURRENT) DRUG THERAPY 12/01/2018 CHELO CRUZ MD [...] 12/03/2018 CHELO CRUZ MD Ot Z79.899 OTHER GAME WARDEN (CURRENT) DRUG THERAPY 12/03/2018 CHELO CRUZ MD [...] 12/07/2018 CHELO CRUZ MD Ot Z79.899 OTHER [facility] (CURRENT) DRUG THERAPY 12/07/2018 CHELO CRUZ MD [...] Ot I25. 10 ATHSCL HEART DISEASE OF [place] CORONARY 08/22/2019 SANKET SANCHEZ MD Ot I25. 5 ISCHEMIC CARDIOMYOPATHY 08/22/2019 SANKET SANCHEZ MD, Ot I48. 0 PAROXYSMAL ATRIAL FIBRILLATION 08/22/2019 SANKET SANCHEZ MD Ot I50. 21 ACUTE SYSTOLIC (CONGESTIVE) HEART FAILUR 08/22/2019 SANKET SANCHEZ MD Ot I70. 0 ATHEROSCLEROSIS OF [place] 08/22/2019 SANKET SANCHEZ MD Ot N18. 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 4 PRESENCE OF EXTERNAL HEARING-AID Procedures Code Description Performed By Per formed On [id number] IN SPECTION OF GREAT VESSEL, PERCUTANEOUS 08/21/2019 [id number] ME ASURE OF CARDIAC SAMPL PRESSURE, L H 08/21/2019 [id number] FL UOROSCOPY OF MULT COR ART USING L OSM 08/21/2019 [id number] FL UOROSCOPY OF LEFT HEART USING LOW OSMO 08/21/2019 [id number] FL UOROSCOPY OF THORACIC [place] USING LOW [...] NRG Blood erythrocyte morphology finding identification [facility] Comprehensive metabolic panel - 08/21/19 16:40 Serum [...] Status Pt. Type Provider Facility Loc./Unit Complaint [id number] 07/26/2019 09:10:00 07/26/2019 23:59: 00 DIS Outpatient JAYCE SILVA [id number] 07/26/2019 08:23:00 07/26/2019 23:59: 00 DIS Outpatient JAYCE SILVA [id number] 04/04/2019 08:00:00 04/04/2019 23:59: 59 [facility] Outpatient MISAEL MAHER LAC [facility] [id number] 08/21/2019 19:10: 11:11:00 DIS Inpatient DANIEL PLATA, SANKET Lockwood [facility] ICU AMI [id number] 02/03/2019 12:23:00 12:20:00 DIS Inpatient DOMINGO PLATA, NATALIE Rodgers [facility] 4TH [place] ATRIAL FIBRIL LATION [id number] 11/30/2018 07:18:00 14:35:00 DIS Outpatient ANTHONY PLATA, CHELO Castro [facility] RIGHT SHOULDER DEGENER ATIVE JOINT DISEASE [id number] 11/25/2018 05:35:00 23:59:59 CLS Outpatient CHELO CRUZ MD Via [facility] PREOP RIGHT SHOULDER DEGENER ATIVE JOINT DISEASE
--- OUTSIDE RECORDS SUMMARY | 2019-09-16 10:28 | XMS REPORT | Continuity of Care Document ---
Author Organization Unknown Address Unknown Phone Unavailable Allergies Active Description Code Type Severity Reaction Onset Reported/Identified Relationship to Patient Clinical Status Yes simvastatin [id number] Drug Aller gy Unknown N/A 02/03/2019 Yes simvastatin [id number] Drug Aller gy Unknown Takes Atorvasta 02/03/2019 [...] 11/30/2018 CHELO CRUZ MD Ot Z79.899 OTHER OFFICE PROFESSIONAL (CURRENT) DRUG THERAPY 11/30/2018 CHELO CRUZ MD [...] 12/01/2018 CHELO CRUZ MD Ot Z79.899 OTHER SNF (CURRENT) DRUG THERAPY 12/01/2018 CHELO CRUZ MD [...] 12/03/2018 CHELO CRUZ MD Ot Z79.899 OTHER OFFICE PROFESSIONAL (CURRENT) DRUG THERAPY 12/03/2018 CHELO CRUZ MD [...] 12/07/2018 CHELO CRUZ MD Ot Z79.899 OTHER SNF (CURRENT) DRUG THERAPY 12/07/2018 CHELO CRUZ MD [...] Ot I25. 10 ATHSCL HEART DISEASE OF [place] CORONARY 08/22/2019 SANKET SANCHEZ MD Ot I25. [...] Code Description Performed By Per formed On 43FU9SI IN SPECTION OF GREAT VESSEL, PERCUTANEOUS 08/21/2019 [id number] ME ASURE OF CARDIAC SAMPL PRESSURE, L H 08/21/2019 [id number] FL UOROSCOPY OF MULT COR ART USING L OSM 08/21/2019 [id number] [place] UOROSCOPY OF LEFT HEART USING LOW OSMO 08/21/2019 [id number] [place] UOROSCOPY OF THORACIC AORTA USING LOW [...] NRG Blood erythrocyte morphology finding identification [facility] Comprehensive metabolic panel - 08/21/19 [...] Status Pt. Type Provider Facility Loc./Unit Complaint [id number] 07/26/2019 09:10:00 07/26/2019 23:59: 00 DIS Outpatient JAYCE SILVA [id number] 07/26/2019 08:23:00 07/26/2019 23:59: 00 DIS Outpatient JAYCE SILVA [id number] 04/04/2019 08:00:00 04/04/2019 23:59: 59 [facility] Outpatient MISAEL MAHER [facility] [id number] 08/21/2019 19:10: 11:11:00 DIS Inpatient DANIEL PLATA, SANKET [place] [facility] ICU AMI [id number] 02/03/2019 12:23:00 12:20:00 DIS Inpatient DOMINGO PLATA, NATALIE Rodgers [facility] [address] [place] [facility] F[facility] L[place] [id number] 11/30/2018 07:18:00 14:35:00 DIS Outpatient ANTHONY PLATA, CHELO Castro [facility] RIGHT SHOULDER DEGENER ATIVE JOINT DISEASE [id number] 11/25/2018 05:35:00 23:59:59 CLS Outpatient CHELO CRUZ MD [facility] PREOP RIGHT SHOULDER DEGENER ATIVE JOINT DISEASE
== END 2019-08-22 11:11 | disposition short-term general hospital (02) | DRG 280 ==
LOC: EDUNIT# 16:40 → ER FS 16:42 → CATH 17:55 → ER FS 18:00 → ICU 19:10
PROVIDERS: ADMIT Internal Medicine Cardiovascular Disease; ATTEND Internal Medicine Cardiovascular Disease
PROC: 4A023N7 Measurement of Cardiac Sampling and Pressure, Left Heart, Percutaneous Approach (ICD-10-PCS; principal; 2019-08-21)
PROC: B2111ZZ Fluoroscopy of Multiple Coronary Arteries using Low Osmolar Contrast (ICD-10-PCS; 2019-08-21)
PROC: B2151ZZ Fluoroscopy of Left Heart using Low Osmolar Contrast (ICD-10-PCS; 2019-08-21)
PROC: B3101ZZ Fluoroscopy of Thoracic Aorta using Low Osmolar Contrast (ICD-10-PCS; 2019-08-21)
PROC: 02JY3ZZ Inspection of Great Vessel, Percutaneous Approach (ICD-10-PCS; 2019-08-21)
DX: I21.19 ST elevation (STEMI) myocardial infarction involving other coronary artery of inferior wall (principal); I13.0 Hypertensive heart and chronic kidney disease with heart failure and stage 1 through stage 4 chronic kidney disease, or unspecified chronic kidney disease; I50.21 Acute systolic (congestive) heart failure; N18.9 Chronic kidney disease, unspecified; I48.0 Paroxysmal atrial fibrillation; I25.10 Atherosclerotic heart disease of native coronary artery without angina pectoris; I25.5 Ischemic cardiomyopathy; Z66 Do not resuscitate; I70.0 Atherosclerosis of aorta; E05.90 Thyrotoxicosis, unspecified without thyrotoxic crisis or storm; E78.5 Hyperlipidemia, unspecified; H91.93 Unspecified hearing loss, bilateral; Z97.4 Presence of external hearing-aid
CPT/HCPCS: 36221; 36415; 71045; 80053; 80061; 83735; 83880; 84100; 84443; 84484; 85007; 85025; 85027; 87081; 87804; 93005; 93306; 93458; 96374